=== PATIENT | male | born 1945 | race Caucasian/White ===

== ENCOUNTER 2016-04-11 13:22 | Emergency (ER) | payer MEDICARE, OTHER ==
[~2016-04-11] VITALS: Ht 177.8 cm; Wt 75.0 kg
[~2016-04-11 13:22] MED LIST: ACIPHEX20 MG PO; ALBUTEROL SULFAT3 M3 IH; ALBUTEROL0.83 MG/ML IH; ASPIR-LOW81 MG PO; ASPIRIN 32325 MG/TA1 PO; CLARITIN 1010 MG/TAB PO; CORDARONE200 MG/TAB PO; COUMADIN 22.5 MG/TAB PO; ELIQUIS 5MG PO; LIPITOR 40MG TA40 MG PO; LOTENSIN 1010 MG/TAB PO; LOTENSIN10 MG PO; NICODERM C21 MG/PATC TD; NITROSTAT0.4 MG SL; RT ADVAIR 228 DISKUS IH; RT SPIRIVA18 MCG IH; TOPROL XL 25MG25 MG PO; TOPROL XL25 MG PO; VENTOLIN0.09 MG IH; VIAGRA 25MG TAB25 MG PO; ZOCOR40 MG PO; ZYRTEC-D 5 MG-11 TER PO
[2016-04-11 13:23] VITALS: TEMP 97.3
[2016-04-11 13:50] LABS: BASO # 0.1 (0.0-0.2); BASO % 1.2 % (0.0-2.0); EOS # 0.6 (0.0-0.7); EOS % 7.2 % (0-4.0); GRAN # 4.4 (1.4-6.5); GRAN % 57.3 % (42.2-75.2); LYMPH # 1.9 (1.2-3.4); MEAN CELL VOLUME 99 fl (80.0-100.0); MEAN CORPUSCULAR HEMOGLOBIN 32 pg (27.0-31.0); MEAN CORPUSCULAR HGB CONC 33 g/dl (33.0-37.0); MEAN PLATELET VOLUME 11.1 fl (7.4-10.4); MONO # 0.7 (0.1-0.6); PLATELET COUNT 183 K/mm3 (130-400); RED BLOOD COUNT 4.67 M/mm3 (4.20-5.60); REDCELL DISTRIBUTION WIDTH-CV 12.7 % (11.5-14.5); WHITE BLOOD COUNT 7.7 K/mm3 (4.8-10.8)
[2016-04-11 14:02] LABS: ANION GAP 10 mmol/L (7-16); BLOOD UREA NITROGEN 18 mg/dL (9-20); CALCIUM 9.3 mg/dL (8.4-10.2); CARBON DIOXIDE 25 mmol/L (22-30); CHLORIDE 99 mmol/L (98-107); CREATININE, serum 1.05 mg/dL (0.66-1.25); GLUCOSE 108 mg/dL (74-106); POTASSIUM 4.5 mmol/L (3.4-5.0); SODIUM 135 mmol/L (137-145)
[2016-04-11 14:11] LABS: B-TYPE NATRIURETIC PEPTIDE 3800 pg/mL (0-125)
[2016-04-11 14:15] LABS: TROPONIN-I < 0.012 ng/mL (0.000-0.034)
[2016-04-11] MEDS ORDERED: LASIX 20MG TABL20 MG PO (14:55)
[2016-04-11] MEDS ORDERED: PREDNISONE20 MG PO (14:55)
[2016-04-11] MEDS ORDERED: LEVAQUIN 750MG750 M1 PO (14:56)
[2016-04-11 15:01] VITALS: BP 116/66; PULSE 76
== END 2016-04-11 15:18 | disposition home or self-care (01) ==
LOC: COL.ER 13:22
PROVIDERS: Emergency Medicine
DX: J44.0 Chronic obstructive pulmonary disease with (acute) lower respiratory infection (principal); J20.9 Acute bronchitis, unspecified; Z87.891 Personal history of nicotine dependence; I25.10 Atherosclerotic heart disease of native coronary artery without angina pectoris; Z86.711 Personal history of pulmonary embolism; Z79.01 Long term (current) use of anticoagulants; I11.0 Hypertensive heart disease with heart failure; I50.9 Heart failure, unspecified; Z95.810 Presence of automatic (implantable) cardiac defibrillator
CPT/HCPCS: J7512

== ENCOUNTER 2016-04-19 08:35 | Day surgery (SDC) | payer MEDICARE, OTHER ==
[~2016-04-19] VITALS: Ht 177.8 cm; Wt 79.5 kg
[~2016-04-19 08:35] MED LIST changes: +LASIX 20MG TABL20 MG PO; +LEVAQUIN 750MG750 M1 PO; +PREDNISONE20 MG PO
[2016-04-19 09:22] VITALS: BP 120/57; PULSE 77; TEMP 98
[2016-04-19 11:13] VITALS: BP 106/61; PULSE 81; TEMP 98.5
[2016-04-19 11:28] VITALS: BP 108/56; PULSE 72
[2016-04-19 11:43] VITALS: BP 126/71; PULSE 76
[2016-04-19 14:58] VITALS: BP 135/67; PULSE 80
== END 2016-04-19 11:58 | disposition home or self-care (01) ==
LOC: SDCO 08:35
DX: J40 Bronchitis, not specified as acute or chronic (principal); J38.7 Other diseases of larynx; J39.8 Other specified diseases of upper respiratory tract; R05 Cough; R06.02 Shortness of breath; R09.89 Other specified symptoms and signs involving the circulatory and respiratory systems; I25.2 Old myocardial infarction; I26.99 Other pulmonary embolism without acute cor pulmonale; I82.411 Acute embolism and thrombosis of right femoral vein; J44.9 Chronic obstructive pulmonary disease, unspecified; Z79.899 Other long term (current) drug therapy; Z79.82 Long term (current) use of aspirin; Z79.01 Long term (current) use of anticoagulants
CPT/HCPCS: J2704; J7120

== ENCOUNTER 2016-04-25 08:46 | Outpatient (CLI) | payer MEDICARE, OTHER ==
[2016-04-25] VITALS (8 sets, daily range): BP systolic 136–157; BP diastolic 74–86; PULSE 70–77; TEMP 100.5
[~2016-04-25] VITALS: Ht 177.8 cm; Wt 79.5 kg
[2016-04-25 11:08] LABS: HEMATOCRIT 39.5 % (42.0-52.0); HEMOGLOBIN 12.8 g/dl (13.5-18.0); MEAN CELL VOLUME 97 fl (80.0-100.0); MEAN CORPUSCULAR HEMOGLOBIN 31 pg (27.0-31.0); MEAN CORPUSCULAR HGB CONC 32 g/dl (33.0-37.0); PLATELET COUNT 207 K/mm3 (130-400); RED BLOOD COUNT 4.07 M/mm3 (4.20-5.60); REDCELL DISTRIBUTION WIDTH-CV 12.5 % (11.5-14.5)
[2016-04-25 11:20] LABS: CREATININE, serum 0.96 mg/dL (0.66-1.25)
== END 2016-04-25 15:30 | disposition home or self-care (01) ==
LOC: COL.VAS 08:46
PROVIDERS: Internal Medicine Pulmonary Disease
DX: I82.411 Acute embolism and thrombosis of right femoral vein (principal); Z45.2 Encounter for adjustment and management of vascular access device; R06.02 Shortness of breath; R94.39 Abnormal result of other cardiovascular function study; I08.0 Rheumatic disorders of both mitral and aortic valves
CPT/HCPCS: C1769; J2250; J3010; J7040; Q9967

== ENCOUNTER 2016-12-20 09:38 | Day surgery (SDC) | payer MEDICARE, OTHER ==
[~2016-12-20] VITALS: Ht 177.8 cm; Wt 80.0 kg
[2016-12-20] MEDS ORDERED: NICODERM C14 MG/PATC TD (10:32)
[2016-12-20 10:36] VITALS: BP 95/76; PULSE 63; TEMP 97
[2016-12-20 12:10] VITALS: BP 109/59; PULSE 69
[2016-12-20 12:25] VITALS: BP 119/69; PULSE 78
[2016-12-20 12:40] VITALS: BP 110/53; PULSE 75
[2016-12-20 12:55] VITALS: BP 131/71; PULSE 71
== END 2016-12-20 13:00 | disposition home or self-care (01) ==
LOC: SDCO 09:38
DX: Z12.11 Encounter for screening for malignant neoplasm of colon (principal); D12.3 Benign neoplasm of transverse colon; D12.5 Benign neoplasm of sigmoid colon; K57.30 Diverticulosis of large intestine without perforation or abscess without bleeding; K21.9 Gastro-esophageal reflux disease without esophagitis; K22.2 Esophageal obstruction; I25.10 Atherosclerotic heart disease of native coronary artery without angina pectoris; E78.5 Hyperlipidemia, unspecified; J44.9 Chronic obstructive pulmonary disease, unspecified; I25.2 Old myocardial infarction; I50.9 Heart failure, unspecified; F17.200 Nicotine dependence, unspecified, uncomplicated; Z95.828 Presence of other vascular implants and grafts; Z79.01 Long term (current) use of anticoagulants
CPT/HCPCS: C1726; J2250; J2405; J3010; J7030

== ENCOUNTER 2018-07-29 14:47 | Observation (INO) | payer MEDICARE, OTHER ==
[~2018-07-29] VITALS: Ht 177.8 cm; Wt 77.4 kg
[~2018-07-29 14:47] MED LIST changes: +LEVAQUIN 5500 MG/TA1 PO; +NICODERM C14 MG/PATC TD; +TAMIFLU 75MG75 MG PO
[2018-07-29 15:46] LABS: BASO # 0.1 (0.0-0.2); BASO % 1.4 % (0.0-2.0); EOS # 0.3 (0.0-0.7); EOS % 4.3 % (0-4.0); GRAN # 4.4 (1.4-6.5); GRAN % 55.1 % (42.2-75.2); HEMATOCRIT 43.1 % (42.0-52.0); HEMOGLOBIN 13.6 g/dl (13.5-18.0); LYMPH # 2.3 (1.2-3.4); LYMPH % 28.8 % (20.0-51.0); MEAN CELL VOLUME 94 fl (80.0-100.0); MEAN CORPUSCULAR HEMOGLOBIN 30 pg (27.0-31.0); MEAN CORPUSCULAR HGB CONC 32 g/dl (33.0-37.0); MEAN PLATELET VOLUME 10.6 fl (7.4-10.4); MONO # 0.8 (0.1-0.6); MONO % 10.1 % (1.7-9.3); PLATELET COUNT 245 K/mm3 (130-400); REDCELL DISTRIBUTION WIDTH-CV 13.6 % (11.5-14.5)
[2018-07-29 16:02] LABS: ALANINE AMINOTRANSFERASE < 6 U/L (21-72); ALKALINE PHOSPHATASE 166 U/L (50-136); ANION GAP 11 mmol/L (7-16); AST,SGOT 23 U/L (15-37); BILIRUBIN,TOTAL 1.1 mg/dL (0.0-1.0); BLOOD UREA NITROGEN 14 mg/dL (9-20); C-REACTIVE PROTEIN 3.7 mg/dL (0.0-0.9); CALCIUM 9.3 mg/dL (8.4-10.2); CARBON DIOXIDE 27 mmol/L (22-30); CHLORIDE 100 mmol/L (98-107); CREATININE, serum 0.93 (0.66-1.25); GLUCOSE 103 mg/dL (74-106); POTASSIUM 4.3 mmol/L (3.4-5.0); SODIUM 138 mmol/L (137-145); TOTAL PROTEIN 7.9 gm/dL (6.4-8.2)
[2018-07-29] MEDS ORDERED: PROTONIX20 MG PO (16:13)
[2018-07-29 16:16] LABS: TROPONIN-I < 0.012 ng/mL (0.000-0.035)
--- NOTE | 2018-07-29 18:00 | NUR ---
Received pt to the floor. Oriented pt to room. Pt denies shortness of breath at rest, on 2l NC. Med rec done. Dr. Miranda in room with pt.
--- NOTE | 2018-07-29 18:56 | NUR ---
Hand off report given to Florencia BROWN. Pt lying in bed, breathing even and unlabored. Denies any needs at this time.
[2018-07-29 19:26] VITALS: BP 142/75; PULSE 102
--- NOTE | 2018-07-29 19:30 | NUR ---
Admitted to the medical floor from ER- VSS, sitting at edge of bed eating supper--denies SOB at this time, o2 is off while pt is eating, sats 92% on room air, Up in room on own- steady on feet
[2018-07-29 20:00] VITALS: BP 142/75; PULSE 102; TEMP 99.5
[2018-07-29 23:18] VITALS: BP 121/62; PULSE 99; TEMP 98.8
[2018-07-30 04:33] VITALS: BP 124/60; PULSE 81
--- NOTE | 2018-07-30 04:34 | NUR ---
Quiet night-- states he is feeling so much better this morning,,VSS, o2 sats 95% on 2L/nc. Denies pain.
[2018-07-30 07:53] VITALS: BP 110/89; PULSE 84; TEMP 97.8
--- NOTE | 2018-07-30 08:47 | NUR ---
Pt is awake and A/Ox4, sitting up in bed watching TV. He denies any pain or discomfort. Pt remains on room air, resp. are even and unlabored. Lungs remains coarse. Pt is up as tolerated in room. Pt denies any other needs, will monitor.
[2018-07-30] MEDS ORDERED: ZITHROMAX500 M2 PO (09:35)
[2018-07-30] MEDS ORDERED: PREDNISONE20 MG PO (09:36)
--- NOTE | 2018-07-30 09:43 | NUR ---
SW met with the patient to discuss discharge plan. The patient lives in [place] with his , Armida. He reports independence with ADLs and has crutches, a walker, showerchair, toliet riser, and nocturnal oxygen through [facility]. The patient's PCP is Dr. Carmen Chandler and he receives his medications at [facility]. He reports no difficulties obtaining her meds. The patient does not have advanced directives and he was not interested in completing them at this time. The patient plans to return home with his upon discharge. An exercise oximetry has been ordered. SW to continue to follow.
--- NOTE | 2018-07-30 09:57 | NUR ---
EXERCISE OXIMETRY: RESTING SPO2 ON RA IS 94% PATIENT'S SPO2 WHILE WALKING 1000 FEET WAS IN BETWEEN 89-92% POST EXCERISE: PATIENT LAID BACK IN BED AND SPO2 WENT BACK UP TO 94% NO OXYGEN REQUIRED AT REST OR WITH EXERCISE. RN MADE AWARE AND WAS ASKED TO KEEP PATIENT OFF OF OXYGEN FOR THE DAY. PATIENT STATED THAT HE WAS TOLD BEFORE THAT HE NEEDED 2L OF OXYGEN AT NIGHT WHILE SLEEPING.
[2018-07-30] MEDS ORDERED: IPRATROPIUM BROM3 M1 IH (10:56)
--- NOTE | 2018-07-30 11:28 | NUR ---
The patient did not qualify for continuous oxygen. The patient informed the hospitalist that he will be traveling with this to his grandson's graduation. The hospitalist recommended using a portable tank for the trip. The patient reports that he does not have a portable tank. AURELIA then contacted his DME company, [employer]. [employer] reports that the patient can rent portable tanks for $7.50 a day and that they would take a copy of his credit card, in case anything were to happen to the tanks. AURELIA informed the patient and the patient's reports that he does not want to do this. He reports that he does not need to use the oxygen during the day, but that he does need a new nebulizer. AURELIA informed the patient's PA. The patient's PA wrote a script for the nebulizer. AURELIA presented the patient with a patient choice form for DME. The patient chose [employer]. Patient choice form signed by the patient and he was provided a copy. AURELIA contacted and faxed the patient's nebulizer script to [facility] [employer]. The patient plans to cigar packer and picker the nebulizer at [facility]. No additional needs at this time.
--- NOTE | 2018-07-30 12:27 | NUR ---
Pt was discharged home from hospital. All discharge instructions and paperwork was reviewed with pt who expressed understanding and had no questions. All medications sent electronically to pharm. Medications reviewed. Saline lock removed, catheter tip intact. Pt was escorted out of facility by staff.
== END 2018-07-30 12:31 | disposition home or self-care (01) ==
LOC: COL.ER 14:47 → MEDICAL 17:06
PROVIDERS: Emergency Medicine; ADMIT Hospitalist
DX: J44.1 Chronic obstructive pulmonary disease with (acute) exacerbation (principal); J96.21 Acute and chronic respiratory failure with hypoxia; I11.0 Hypertensive heart disease with heart failure; I50.20 Unspecified systolic (congestive) heart failure; E78.5 Hyperlipidemia, unspecified; K21.9 Gastro-esophageal reflux disease without esophagitis; Z86.711 Personal history of pulmonary embolism; Z79.01 Long term (current) use of anticoagulants; Z95.810 Presence of automatic (implantable) cardiac defibrillator; Z79.82 Long term (current) use of aspirin; Z79.899 Other long term (current) drug therapy; F17.210 Nicotine dependence, cigarettes, uncomplicated
CPT/HCPCS: G0378; J2920; J7030; J7512

== ENCOUNTER 2018-12-02 09:03 | Emergency (ER) | payer MEDICARE, OTHER ==
[~2018-12-02] VITALS: Ht 177.8 cm; Wt 74.1 kg
[~2018-12-02 09:03] MED LIST changes: +ASPIRIN E.C. 8181 MG PO; +IPRATROPIUM BROM3 M1 IH; +MEXITIL 150MG150 MG PO; +PROTONIX20 MG PO; +ZEBETA 5MG5 MG PO; +ZITHROMAX500 M2 PO
[2018-12-02 09:47] LABS: ALANINE AMINOTRANSFERASE < 6 U/L (21-72); ALBUMIN 3.8 gm/dL (3.5-5.0); ALKALINE PHOSPHATASE 143 U/L (50-136); ANION GAP 10 mmol/L (7-16); AST,SGOT 18 U/L (15-37); BLOOD UREA NITROGEN 8 mg/dL (9-20); CALCIUM 8.9 mg/dL (8.4-10.2); CARBON DIOXIDE 27 mmol/L (22-30); CHLORIDE 101 mmol/L (98-107); CREATININE, serum 0.68 (0.66-1.25); GLUCOSE 100 mg/dL (74-106); POTASSIUM 4.1 mmol/L (3.4-5.0); SODIUM 137 mmol/L (137-145); TOTAL PROTEIN 7.3 gm/dL (6.4-8.2)
[2018-12-02 10:00] LABS: TROPONIN-I < 0.012 ng/mL (0.000-0.035)
[2018-12-02 10:28] LABS: HEMATOCRIT 38.3 % (42.0-52.0); HEMOGLOBIN 11.8 g/dl (13.5-18.0); MEAN CELL VOLUME 92 fl (80.0-100.0); MEAN CORPUSCULAR HEMOGLOBIN 28 pg (27.0-31.0); RED BLOOD COUNT 4.16 M/mm3 (4.20-5.60)
[2018-12-02 10:29] LABS: BASO # 0.1 (0.0-0.2); BASO % 1.2 % (0.0-2.0); EOS # 0.4 (0.0-0.7); EOS % 4.8 % (0-4.0); GRAN % 66.4 % (42.2-75.2); LYMPH # 1.4 (1.2-3.4); LYMPH % 18.4 % (20.0-51.0); MEAN CORPUSCULAR HGB CONC 31 g/dl (33.0-37.0); MEAN PLATELET VOLUME 10.5 fl (7.4-10.4); MONO # 0.7 (0.1-0.6); MONO % 9.1 % (1.7-9.3); PLATELET COUNT 342 K/mm3 (130-400); REDCELL DISTRIBUTION WIDTH-CV 14.1 % (11.5-14.5)
[2018-12-02] MEDS ORDERED: PREDNISONE20 MG PO (10:37)
[2018-12-02] MEDS ORDERED: DOXYCYCLINE 10100 MG PO (10:37)
[2018-12-02] MEDS ORDERED: IPRATROPIUM BROM3 M1 IH (10:38)
[2018-12-02 12:30] VITALS: BP 130/69; PULSE 107; TEMP 98.3
== END 2018-12-02 12:30 | disposition home or self-care (01) ==
LOC: COL.ER 09:03
PROVIDERS: Emergency Medicine
DX: J44.1 Chronic obstructive pulmonary disease with (acute) exacerbation (principal); I11.0 Hypertensive heart disease with heart failure; I25.10 Atherosclerotic heart disease of native coronary artery without angina pectoris; I50.9 Heart failure, unspecified; F17.210 Nicotine dependence, cigarettes, uncomplicated; Z95.5 Presence of coronary angioplasty implant and graft; Z79.82 Long term (current) use of aspirin; Z79.52 Long term (current) use of systemic steroids; Z79.51 Long term (current) use of inhaled steroids; Z79.01 Long term (current) use of anticoagulants
CPT/HCPCS: A4216; J0696; J2930; J3475

== ENCOUNTER 2019-04-15 08:47 | Inpatient (IN) | payer MEDICARE, OTHER ==
[~2019-04-15] VITALS: Ht 177.8 cm; Wt 76.8 kg
[2019-04-15] VITALS (371 sets, daily range): BP systolic 93–141; BP diastolic 49–82; PULSE 74–111; TEMP 97.7–98.1; O2SAT 91–99
[~2019-04-15 08:47] MED LIST changes: +DOXYCYCLINE 10100 MG PO; +ENTRESTO 49 MG1 EACH PO; +MEDROL 4MG DOSPA4 MG PO; +MUCINEX 60600 MG/TA1 PO; +OMNICEF 300MG300 MG PO; +TRELEGY ELLIPT1 EACH IH
[2019-04-15 09:52] LABS: BASO # 0.1 (0.0-0.2); BASO % 2.2 % (0.0-2.0); EOS # 0.3 (0.0-0.7); EOS % 5.9 % (0-4.0); GRAN # 3.2 (1.4-6.5); GRAN % 57.5 % (42.2-75.2); HEMOGLOBIN 10.6 g/dl (13.5-18.0); LYMPH # 1.3 (1.2-3.4); LYMPH % 24.5 % (20.0-51.0); MEAN CELL VOLUME 87 fl (80.0-100.0); MEAN CORPUSCULAR HEMOGLOBIN 27 pg (27.0-31.0); MEAN CORPUSCULAR HGB CONC 31 g/dl (33.0-37.0); MEAN PLATELET VOLUME 10.4 fl (7.4-10.4); MONO # 0.5 (0.1-0.6); MONO % 9.5 % (1.7-9.3); PLATELET COUNT 214 K/mm3 (130-400); RED BLOOD COUNT 3.92 M/mm3 (4.20-5.60); REDCELL DISTRIBUTION WIDTH-CV 15.1 % (11.5-14.5)
[2019-04-15 09:56] LABS: HEMATOCRIT 34.2 % (42.0-52.0)
[2019-04-15 09:57] LABS: ALBUMIN 3.6 gm/dL (3.5-5.0); BILIRUBIN,TOTAL 0.8 mg/dL (0.0-1.0); CALCIUM 8.7 mg/dL (8.4-10.2); CREATININE, serum 0.78 (0.66-1.25); INR 1.3 (0.8-3.0); POTASSIUM 4.4 mmol/L (3.4-5.0); PROTHROMBIN TIME 15.7 SECONDS (9.7-12.8); TOTAL PROTEIN 6.7 gm/dL (6.4-8.2)
[2019-04-15 10:08] LABS: TROPONIN-I 0.014 ng/mL (0.000-0.035)
--- NOTE | 2019-04-15 14:28 | NUR ---
SEE MERGE FOR MEDICATION ADMINISTRATION AND INTRA/POST PROCEDURE DOCUMENTATION AND ASSESSMENTS. PLAN FOR RIGHT GROIN, BOTH RIGHT AND LEFT GROIN PREPPED.
--- NOTE | 2019-04-15 15:05 | NUR ---
Patient arrives to ICU 16 with labor training manager staff. Attached to monitors. Assessment and vitals as charted. Right groin site CDI and free of hematoma. Distal pulses +1 and equal.
[2019-04-15] MEDS ORDERED: MEXITIL 150MG150 MG PO (15:35)
[2019-04-16] VITALS (415 sets, daily range): BP systolic 105–126; BP diastolic 47–75; PULSE 49–112; TEMP 97.6–98.6; O2SAT 89–97
[2019-04-16 07:03] LABS: BASO # 0.1 (0.0-0.2); BASO % 1.5 % (0.0-2.0); EOS # 0.3 (0.0-0.7); EOS % 4.8 % (0-4.0); GRAN # 2.8 (1.4-6.5); GRAN % 51.3 % (42.2-75.2); HEMOGLOBIN 10.8 g/dl (13.5-18.0); LYMPH # 1.7 (1.2-3.4); LYMPH % 31.3 % (20.0-51.0); MEAN CELL VOLUME 90 fl (80.0-100.0); MEAN CORPUSCULAR HEMOGLOBIN 27 pg (27.0-31.0); MEAN CORPUSCULAR HGB CONC 30 g/dl (33.0-37.0); MEAN PLATELET VOLUME 10.4 fl (7.4-10.4); MONO # 0.6 (0.1-0.6); MONO % 10.7 % (1.7-9.3); PLATELET COUNT 211 K/mm3 (130-400); REDCELL DISTRIBUTION WIDTH-CV 15.5 % (11.5-14.5)
[2019-04-16 07:05] LABS: HEMATOCRIT 35.9 % (42.0-52.0)
--- NOTE | 2019-04-16 07:05 | NUR ---
Bedside report given to STEPHANIE Corley.
[2019-04-16 07:07] LABS: CALCIUM 8.7 mg/dL (8.4-10.2); CREATININE, serum 0.86 (0.66-1.25); MAGNESIUM 1.9 mg/dL (1.6-2.3); POTASSIUM 4.3 mmol/L (3.4-5.0)
--- NOTE | 2019-04-16 13:36 | NUR ---
Attempted to call report - staff unavailable at this time
--- NOTE | 2019-04-16 14:35 | NUR ---
Pt transported to [place] [id number] at this time - recieved by STEPHANIE Fine - pt tolerated transfer well
--- NOTE | 2019-04-16 15:26 | NUR ---
Touring Production Manager met with patient and patient's Armida (ph#[phone]) to discuss discharge planning. Patient lives in [place] with his . Patient sees Dr. Chandler for primary care and obtains medications from [facility]. Patient uses oxygen at night which is provided by [facility]. Patient reports independence with ADLS. Patient does not have Advance Directives completed at this time. Patient to move to medical floor. SW will follow as needed.
--- NOTE | 2019-04-16 18:55 | NUR ---
Report with STEPHANIE Lee. Pt sitting up on side of bed eating dinner, denies pain or needs at this time. Call light in reach.
--- NOTE | 2019-04-16 20:00 | NUR ---
Received report from STEPHANIE Fine. Assessment complete. Alert and oriented. Denies any pain or any discomfort at this time. Meds adminsitered as ordered. INT to RFA intact, flushed, dressing CDI. Tele monitor in place, leads checked. Needs attended too. Call light within reach.
[2019-04-17 04:00] VITALS: BP 119/71; PULSE 102; TEMP 98.2
--- NOTE | 2019-04-17 05:52 | NUR ---
Pt uneventful during this shift. Made no complaints. Meds given. Call light within reach. On 2LO2 HS. On RA now.
--- NOTE | 2019-04-17 07:14 | NUR ---
Report given to STEPHANIE Burciaga.
[2019-04-17 07:35] LABS: HEMOGLOBIN 10.2 g/dl (13.5-18.0); MEAN CELL VOLUME 89 fl (80.0-100.0); MEAN CORPUSCULAR HEMOGLOBIN 27 pg (27.0-31.0); MEAN CORPUSCULAR HGB CONC 30 g/dl (33.0-37.0); MEAN PLATELET VOLUME 10.2 fl (7.4-10.4); PLATELET COUNT 200 K/mm3 (130-400); RED BLOOD COUNT 3.81 M/mm3 (4.20-5.60); REDCELL DISTRIBUTION WIDTH-CV 15.5 % (11.5-14.5)
[2019-04-17 07:44] LABS: HEMATOCRIT 33.8 % (42.0-52.0)
[2019-04-17 07:47] LABS: CALCIUM 8.8 mg/dL (8.4-10.2); CREATININE, serum 0.83 (0.66-1.25); MAGNESIUM 1.8 mg/dL (1.6-2.3); POTASSIUM 4.1 mmol/L (3.4-5.0)
[2019-04-17 09:12] VITALS: BP 103/57; PULSE 73; TEMP 97.6
--- NOTE | 2019-04-17 09:52 | NUR ---
Pt awaken and alert upon entry, no C/O of pain at this time, R groin site CDI open to air, shift assessment complete, left Pt call light in reach, bed in lowest position.
[2019-04-17 12:08] VITALS: BP 132/70; PULSE 72; TEMP 98.7
[2019-04-17] MEDS ORDERED: BETAPACE 120MG120 MG PO (14:39)
--- NOTE | 2019-04-17 17:01 | NUR ---
Pt discharged to home, IV discontinued, tip intact, discussed discharge packet, answered all questions, escorted to entrance, Pt left with spouse via private transportation.
== END 2019-04-17 17:00 | disposition home or self-care (01) | DRG 287 ==
LOC: COL.ER 08:47 → MEDICAL 10:32 → IMCU 10:32 → MEDICAL 04-16 14:33
PROVIDERS: Emergency Medicine; Nurse Practitioner; Physician Assistant; ADMIT Hospitalist
PROC: 4A023N7 Measurement of Cardiac Sampling and Pressure, Left Heart, Percutaneous Approach (ICD-10-PCS; principal; 2019-04-15)
PROC: B2111ZZ Fluoroscopy of Multiple Coronary Arteries using Low Osmolar Contrast (ICD-10-PCS; 2019-04-15)
DX: I49.01 Ventricular fibrillation (principal); I50.22 Chronic systolic (congestive) heart failure; I25.5 Ischemic cardiomyopathy; I25.10 Atherosclerotic heart disease of native coronary artery without angina pectoris; J44.9 Chronic obstructive pulmonary disease, unspecified; I11.0 Hypertensive heart disease with heart failure; Z95.810 Presence of automatic (implantable) cardiac defibrillator; Z86.718 Personal history of other venous thrombosis and embolism; Z79.01 Long term (current) use of anticoagulants; K21.9 Gastro-esophageal reflux disease without esophagitis; E78.5 Hyperlipidemia, unspecified; Z95.5 Presence of coronary angioplasty implant and graft; F17.210 Nicotine dependence, cigarettes, uncomplicated; Z88.8 Allergy status to other drugs, medicaments and biological substances; D64.9 Anemia, unspecified
CPT/HCPCS: 99223-AI; 99232-AI; 99239; C1760; C1894; J1644; J2250; J3010; Q9967

== ENCOUNTER → 2019-12-24 | Outpatient (CLI) | payer MEDICARE, OTHER ==
[~2019-12-24] MED LIST changes: +BETAPACE 120MG120 MG PO
== END ==
LOC: ZCOL.LAB 15:33
DX: H60.92 Unspecified otitis externa, left ear (principal)

== ENCOUNTER 2020-01-09 16:32 | Emergency (ER) | payer MEDICARE, OTHER ==
[~2020-01-09] VITALS: Ht 177.8 cm; Wt 72.5 kg
[2020-01-09 16:37] VITALS: TEMP 96.8
[2020-01-09 17:08] LABS: BASO # 0.1 (0.0-0.2); BASO % 1.8 % (0.0-2.0); EOS # 0.3 (0.0-0.7); EOS % 4.3 % (0-4.0); GRAN # 3.5 (1.4-6.5); HEMATOCRIT 45.4 % (42.0-52.0); HEMOGLOBIN 14.6 g/dl (13.5-18.0); INR 1.5 (0.8-3.0); LYMPH # 3.2 (1.2-3.4); LYMPH % 40.8 % (20.0-51.0); MEAN CELL VOLUME 91 fl (80.0-100.0); MEAN CORPUSCULAR HEMOGLOBIN 29 pg (27.0-31.0); MEAN CORPUSCULAR HGB CONC 32 g/dl (33.0-37.0); MONO # 0.6 (0.1-0.6); MONO % 7.8 % (1.7-9.3); PLATELET COUNT 335 K/mm3 (130-400); PROTHROMBIN TIME 16.9 SECONDS (9.7-12.8); RED BLOOD COUNT 4.99 M/mm3 (4.20-5.60)
[2020-01-09 17:10] LABS: ALBUMIN 4.1 gm/dL (3.5-5.0); BILIRUBIN,TOTAL 0.8 mg/dL (0.0-1.0); CALCIUM 9.2 mg/dL (8.4-10.2); CREATININE, serum 0.7 (0.66-1.25); POTASSIUM 3.9 mmol/L (3.4-5.0); TOTAL PROTEIN 7.6 gm/dL (6.4-8.2)
[2020-01-09 17:11] LABS: PARTIAL THROMBOPLASTIN TIME 37.1 SECONDS (26.0-37.0)
[2020-01-09] MEDS ORDERED: MEXITIL 150MG150 MG PO (17:11)
[2020-01-09 17:21] LABS: TROPONIN-I 0.027 ng/mL (0.000-0.035)
[2020-01-09] MEDS ORDERED: DALIRESP500 MCG PO (17:41)
[2020-01-09] MEDS ORDERED: PROAIR HFA0.09 MG/AC IH (17:42)
[2020-01-09] MEDS ORDERED: ACIPHEX20 MG PO (17:42)
[2020-01-09] MEDS ORDERED: LIPITOR 80MG80 MG PO (17:42)
[2020-01-09] MEDS ORDERED: LASIX 40MG TABL40 MG PO (17:43)
[2020-01-09] MEDS ORDERED: TRELEGY ELLIPT1 EACH IH (17:43)
[2020-01-09] MEDS ORDERED: BETAPACE AF80 MG/TA1 (17:44)
[2020-01-09] MEDS ORDERED: ELIQUIS 5MG PO (17:44)
[2020-01-09] MEDS ORDERED: ASPIRIN 81M81 MG/TA2 PO (17:45)
[2020-01-09] MEDS ORDERED: ENTRESTO 24 MG1 EACH PO (17:45)
[2020-01-09] MEDS ORDERED: NATURAL IRON65 MG (17:46)
[2020-01-09 18:02] LABS: MAGNESIUM 1.9 mg/dL (1.6-2.3); PHOSPHOROUS 3.7 mg/dL (2.5-4.5)
[2020-01-09 19:06] VITALS: BP 144/81; PULSE 76
== END 2020-01-09 19:12 | disposition short-term general hospital (02) ==
LOC: COL.ER 16:32
PROVIDERS: Emergency Medicine
DX: T82.198A Other mechanical complication of other cardiac electronic device, initial encounter (principal); I47.2 Ventricular tachycardia; R07.9 Chest pain, unspecified; I25.10 Atherosclerotic heart disease of native coronary artery without angina pectoris; I10 Essential (primary) hypertension; J44.9 Chronic obstructive pulmonary disease, unspecified; I25.2 Old myocardial infarction; F17.210 Nicotine dependence, cigarettes, uncomplicated; Z79.01 Long term (current) use of anticoagulants; Z79.82 Long term (current) use of aspirin; Z86.718 Personal history of other venous thrombosis and embolism; Z95.0 Presence of cardiac pacemaker; Z86.711 Personal history of pulmonary embolism; Z95.9 Presence of cardiac and vascular implant and graft, unspecified; Z88.8 Allergy status to other drugs, medicaments and biological substances

== ENCOUNTER → 2020-07-13 | Outpatient (CLI) | payer MEDICARE, OTHER ==
[~2020-07-13] MED LIST changes: +ASPIRIN 81M81 MG/TA2 PO; +BETAPACE AF80 MG/TA1 PO; +CEPHALEXIN500 M1 PO; +DALIRESP500 MCG PO; +DOXYCYCLINE HY100 MG PO; +ENTRESTO 24 MG1 EACH PO; +IMDUR 30MG30 MG/TAB PO; +LASIX 40MG TABL40 MG PO; +LIPITOR 80MG80 MG PO; +NATURAL IRON65 MG; +PREDNISONE10 MG PO; +PREDNISONE50 MG PO; +PROAIR HFA0.09 MG/AC IH; +VITAMIN D31000 IU PO; +XOPENEX 1.1.25 MG/3 IH
== END ==
LOC: COL.RAD 10:42
DX: R10.31 Right lower quadrant pain (principal)
CPT/HCPCS: Q9967

== ENCOUNTER 2020-07-14 09:04 | Day surgery (SDC) | payer MEDICARE, OTHER ==
[~2020-07-14] VITALS: Ht 177.8 cm; Wt 82.5 kg
[~2020-07-14 09:04] MED LIST changes: -CEPHALEXIN500 M1 PO; -DOXYCYCLINE HY100 MG PO; -IMDUR 30MG30 MG/TAB PO; -PREDNISONE10 MG PO; -PREDNISONE50 MG PO; -VITAMIN D31000 IU PO; -XOPENEX 1.1.25 MG/3 IH
[2020-07-14] MEDS ORDERED: TOPROL XL 25MG25 MG PO (09:50)
[2020-07-14] MEDS ORDERED: XOPENEX 1.1.25 MG/3 IH (09:51)
[2020-07-14] MEDS ORDERED: MUCINEX 60600 MG/TA1 PO (09:51)
[2020-07-14] MEDS ORDERED: VITAMIN D31000 IU PO (09:52)
[2020-07-14 10:28] VITALS: BP 125/57; PULSE 73; TEMP 97.5
[2020-07-14 11:20] VITALS: BP 90/55; PULSE 81; TEMP 97.7
--- NOTE | 2020-07-14 11:20 | NUR ---
PT TO BAY 3 VIA CART FROM ENDO ROOM, PT WALKED TO CHAIR WITH ASSIST, IN ROOM, STATES FEELS "A LITTLE LIGHT HEADED" RECLINER BACK, CALL LIGHT IN REACH, TAKES SNACK
[2020-07-14 11:35] VITALS: BP 106/42; PULSE 80
[2020-07-14 11:50] VITALS: BP 103/45; PULSE 79
--- NOTE | 2020-07-14 11:50 | NUR ---
IN ROOM TO TALK TO PT AND , IV DC'D INTACT. REVIEWED DISCHARGE INST. WITH PT ON MODERATE SEDATION PRECAUTIONS, FOLLOWUP, ACTIVITY TODAY WITH VERBAL UNDERSTANDING.
[2020-07-14 12:05] VITALS: BP 109/51; PULSE 81
--- NOTE | 2020-07-14 12:05 | NUR ---
PT UP AND DRESSED WITH STANDBY ASSIST, TOLERATED WELL, DISCHARGED VIA W/C TO CAR WITH AND STAFF
== END 2020-07-14 12:05 | disposition home or self-care (01) ==
LOC: SDCO 09:04
DX: K22.2 Esophageal obstruction (principal); R13.10 Dysphagia, unspecified; K44.9 Diaphragmatic hernia without obstruction or gangrene; Z86.010 Personal history of colon polyps; I11.0 Hypertensive heart disease with heart failure; I50.9 Heart failure, unspecified; I25.10 Atherosclerotic heart disease of native coronary artery without angina pectoris; Z86.718 Personal history of other venous thrombosis and embolism; K21.9 Gastro-esophageal reflux disease without esophagitis; E78.5 Hyperlipidemia, unspecified; Z79.01 Long term (current) use of anticoagulants; I25.2 Old myocardial infarction; M19.90 Unspecified osteoarthritis, unspecified site; Z86.711 Personal history of pulmonary embolism; J30.2 Other seasonal allergic rhinitis; Z88.2 Allergy status to sulfonamides; Z88.8 Allergy status to other drugs, medicaments and biological substances; J44.9 Chronic obstructive pulmonary disease, unspecified; Z99.81 Dependence on supplemental oxygen; Z87.891 Personal history of nicotine dependence
CPT/HCPCS: C1726; J2704; J7030

== ENCOUNTER 2020-08-07 13:20 | Emergency (ER) | payer MEDICARE, OTHER ==
[~2020-08-07] VITALS: Ht 177.8 cm; Wt 80.5 kg
[~2020-08-07 13:20] MED LIST changes: +VITAMIN D31000 IU PO; +XOPENEX 1.1.25 MG/3 IH
[2020-08-07 14:28] LABS: INR 1.5 (0.8-3.0); PROTHROMBIN TIME 16.7 SECONDS (9.7-12.8)
[2020-08-07 14:31] LABS: PARTIAL THROMBOPLASTIN TIME 31.7 SECONDS (26.0-37.0)
[2020-08-07 14:32] LABS: ALANINE AMINOTRANSFERASE 15 U/L (4-49); ALBUMIN 3.7 gm/dL (3.5-5.0); ALKALINE PHOSPHATASE 92 U/L (50-136); ANION GAP 7 mmol/L (7-16); AST,SGOT 23 U/L (15-37); BILIRUBIN,TOTAL 1.2 mg/dL (0.0-1.0); BLOOD UREA NITROGEN 14 mg/dL (9-20); CALCIUM 8.6 mg/dL (8.4-10.2); CARBON DIOXIDE 25 mmol/L (22-30); CHLORIDE 106 mmol/L (98-107); CREATININE, serum 0.76 (0.66-1.25); GLUCOSE 135 mg/dL (74-106); POTASSIUM 3.9 mmol/L (3.4-5.0); SODIUM 138 mmol/L (137-145); TOTAL PROTEIN 6.7 gm/dL (6.4-8.2)
[2020-08-07 14:46] LABS: TROPONIN-I < 0.012 ng/mL (0.000-0.035)
[2020-08-07 15:25] LABS: BASO # 0.2 (0.0-0.2); BASO % 1.7 % (0.0-2.0); EOS # 0.4 (0.0-0.7); EOS % 4.5 % (0-4.0); GRAN # 4.4 (1.4-6.5); GRAN % 51.5 % (42.2-75.2); HEMATOCRIT 45.8 % (42.0-52.0); HEMOGLOBIN 14.7 g/dl (13.5-18.0); LYMPH # 2.9 (1.2-3.4); LYMPH % 33.3 % (20.0-51.0); MEAN CELL VOLUME 98 fl (80.0-100.0); MEAN CORPUSCULAR HEMOGLOBIN 31 pg (27.0-31.0); MEAN CORPUSCULAR HGB CONC 32 g/dl (33.0-37.0); MEAN PLATELET VOLUME 11.8 fl (7.4-10.4); MONO # 0.8 (0.1-0.6); MONO % 8.8 % (1.7-9.3); PLATELET COUNT 208 K/mm3 (130-400); RED BLOOD COUNT 4.69 M/mm3 (4.20-5.60); REDCELL DISTRIBUTION WIDTH-CV 12.8 % (11.5-14.5)
[2020-08-07] MEDS ORDERED: PREDNISONE20 MG PO (17:51)
[2020-08-07] MEDS ORDERED: DOXYCYCLINE 10100 MG PO (17:51)
[2020-08-07 18:17] VITALS: BP 163/91; PULSE 75; TEMP 98
== END 2020-08-07 18:27 | disposition home or self-care (01) ==
LOC: COL.ER 13:20
PROVIDERS: Family Medicine
DX: J44.1 Chronic obstructive pulmonary disease with (acute) exacerbation (principal); R07.89 Other chest pain; I25.10 Atherosclerotic heart disease of native coronary artery without angina pectoris; I25.2 Old myocardial infarction; I50.9 Heart failure, unspecified; Z95.0 Presence of cardiac pacemaker; Z88.2 Allergy status to sulfonamides; Z88.8 Allergy status to other drugs, medicaments and biological substances; Z87.891 Personal history of nicotine dependence; Z79.01 Long term (current) use of anticoagulants; Z79.82 Long term (current) use of aspirin
CPT/HCPCS: J2930

== ENCOUNTER 2020-08-21 13:13 | Emergency (ER) | payer MEDICARE, OTHER ==
[~2020-08-21] VITALS: Ht 177.8 cm; Wt 80.9 kg
[2020-08-21 13:19] VITALS: TEMP 97.7
[2020-08-21 13:51] LABS: BASO # 0.1 (0.0-0.2); BASO % 1.1 % (0.0-2.0); EOS # 0.4 (0.0-0.7); EOS % 3.8 % (0-4.0); GRAN # 7.3 (1.4-6.5); GRAN % 68.3 % (42.2-75.2); HEMATOCRIT 40.4 % (42.0-52.0); HEMOGLOBIN 13.1 g/dl (13.5-18.0); LYMPH # 1.9 (1.2-3.4); LYMPH % 18.2 % (20.0-51.0); MEAN CELL VOLUME 96 fl (80.0-100.0); MEAN CORPUSCULAR HEMOGLOBIN 31 pg (27.0-31.0); MEAN CORPUSCULAR HGB CONC 32 g/dl (33.0-37.0); MEAN PLATELET VOLUME 10.5 fl (7.4-10.4); MONO # 0.9 (0.1-0.6); MONO % 8.3 % (1.7-9.3); PLATELET COUNT 180 K/mm3 (130-400); RED BLOOD COUNT 4.22 M/mm3 (4.20-5.60); REDCELL DISTRIBUTION WIDTH-CV 12.9 % (11.5-14.5)
[2020-08-21 14:05] LABS: ALANINE AMINOTRANSFERASE 15 U/L (4-49); ALBUMIN 3.6 gm/dL (3.5-5.0); ALKALINE PHOSPHATASE 97 U/L (50-136); ANION GAP 7 mmol/L (7-16); AST,SGOT 21 U/L (15-37); BILIRUBIN,TOTAL 1.5 mg/dL (0.0-1.0); BLOOD UREA NITROGEN 11 mg/dL (9-20); C-REACTIVE PROTEIN 5.6 mg/dL (0.0-0.9); CALCIUM 8.5 mg/dL (8.4-10.2); CARBON DIOXIDE 23 mmol/L (22-30); CHLORIDE 106 mmol/L (98-107); CREATININE, serum 0.74 (0.66-1.25); GLUCOSE 110 mg/dL (74-106); POTASSIUM 3.7 mmol/L (3.4-5.0); SODIUM 136 mmol/L (137-145); TOTAL PROTEIN 6.9 gm/dL (6.4-8.2)
[2020-08-21 14:11] LABS: COLLECTION METHOD CLEAN CATCH
[2020-08-21 14:20] LABS: PH 6 (5-8); SQUAMOUS EPITHELIAL None Seen /hpf; URINE APPEARANCE Clear; URINE BACTERIA None Seen /hpf; URINE BILIRUBIN Negative (NEGATIVE); URINE BLOOD Negative (NEGATIVE); URINE COLOR Yellow; URINE GLUCOSE Negative (NEGATIVE); URINE KETONE Negative (NEGATIVE); URINE LEUKOCYTE ESTERASE Negative (NEGATIVE); URINE NITRATE Negative (NEGATIVE); URINE PROTEIN(semi-quant) Negative (NEGATIVE); URINE RBC 0-2 /hpf; URINE UROBILINOGEN Negative (NEGATIVE)
[2020-08-21 14:32] LABS: TROPONIN-I < 0.012 ng/mL (0.000-0.035)
[2020-08-21] MEDS ORDERED: OMNICEF 300MG300 MG PO (16:53)
[2020-08-21] MEDS ORDERED: PREDNISONE10 MG PO (16:53)
[2020-08-21 17:02] VITALS: BP 129/72; PULSE 77
== END 2020-08-21 17:07 | disposition home or self-care (01) ==
LOC: COL.ER 13:13
PROVIDERS: Family Medicine
DX: J20.9 Acute bronchitis, unspecified (principal); J44.1 Chronic obstructive pulmonary disease with (acute) exacerbation; Z87.891 Personal history of nicotine dependence; Z79.52 Long term (current) use of systemic steroids; Z79.01 Long term (current) use of anticoagulants
CPT/HCPCS: J0696; J1940; J2930; J7120

== ENCOUNTER 2020-09-20 13:08 | Emergency (ER) | payer MEDICARE, OTHER ==
[~2020-09-20] VITALS: Ht 177.8 cm; Wt 80.0 kg
[~2020-09-20 13:08] MED LIST changes: +PREDNISONE10 MG PO
[2020-09-20 13:14] VITALS: TEMP 97.5
[2020-09-20 13:43] LABS: BASO # 0.1 (0.0-0.2); BASO % 1.7 % (0.0-2.0); EOS # 0.5 (0.0-0.7); EOS % 6.7 % (0-4.0); GRAN # 2.8 (1.4-6.5); GRAN % 39.5 % (42.2-75.2); HEMATOCRIT 43.8 % (42.0-52.0); HEMOGLOBIN 14.4 g/dl (13.5-18.0); LYMPH # 3.2 (1.2-3.4); LYMPH % 44.7 % (20.0-51.0); MEAN CELL VOLUME 95 fl (80.0-100.0); MEAN CORPUSCULAR HEMOGLOBIN 31 pg (27.0-31.0); MEAN CORPUSCULAR HGB CONC 33 g/dl (33.0-37.0); MEAN PLATELET VOLUME 10.2 fl (7.4-10.4); MONO # 0.5 (0.1-0.6); MONO % 7.3 % (1.7-9.3); PLATELET COUNT 250 K/mm3 (130-400); REDCELL DISTRIBUTION WIDTH-CV 13.6 % (11.5-14.5)
[2020-09-20 14:01] LABS: ALANINE AMINOTRANSFERASE 19 U/L (4-49); ALBUMIN 3.9 gm/dL (3.5-5.0); ALKALINE PHOSPHATASE 111 U/L (50-136); ANION GAP 8 mmol/L (7-16); AST,SGOT 26 U/L (15-37); BLOOD UREA NITROGEN 13 mg/dL (9-20); CALCIUM 9.1 mg/dL (8.4-10.2); CARBON DIOXIDE 27 mmol/L (22-30); CHLORIDE 106 mmol/L (98-107); CREATININE, serum 0.99 (0.66-1.25); GLUCOSE 163 mg/dL (74-106); POTASSIUM 3.5 mmol/L (3.4-5.0); SODIUM 141 mmol/L (137-145); TOTAL PROTEIN 7.4 gm/dL (6.4-8.2)
[2020-09-20 14:13] LABS: TROPONIN-I < 0.012 ng/mL (0.000-0.035)
[2020-09-20] MEDS ORDERED: DOXYCYCLINE 10100 MG PO ×2 (15:27)
[2020-09-20] MEDS ORDERED: PREDNISONE50 MG PO (15:27)
[2020-09-20] MEDS ORDERED: OMNICEF 300MG300 MG PO (15:54)
[2020-09-20 15:58] VITALS: BP 118/63; PULSE 66
== END 2020-09-20 15:58 | disposition home or self-care (01) ==
LOC: COL.ER 13:08
PROVIDERS: Emergency Medicine
DX: J44.1 Chronic obstructive pulmonary disease with (acute) exacerbation (principal); I50.9 Heart failure, unspecified; I25.10 Atherosclerotic heart disease of native coronary artery without angina pectoris; I25.2 Old myocardial infarction; Z88.8 Allergy status to other drugs, medicaments and biological substances; Z87.891 Personal history of nicotine dependence; Z88.1 Allergy status to other antibiotic agents; Z79.52 Long term (current) use of systemic steroids; Z79.01 Long term (current) use of anticoagulants; Z79.82 Long term (current) use of aspirin
CPT/HCPCS: J1885; J7040; J7512

== ENCOUNTER 2020-11-28 12:27 | Emergency (ER) | payer MEDICARE, OTHER ==
[~2020-11-28] VITALS: Ht 177.8 cm; Wt 82.7 kg
[~2020-11-28 12:27] MED LIST changes: +PREDNISONE50 MG PO
[2020-11-28 12:46] VITALS: TEMP 98.8
[2020-11-28 13:27] LABS: BASO # 0.1 (0.0-0.2); BASO % 0.9 % (0.0-2.0); EOS # 0.2 (0.0-0.7); EOS % 1.4 % (0-4.0); GRAN # 8.3 (1.4-6.5); GRAN % 70.6 % (42.2-75.2); HEMATOCRIT 41.3 % (42.0-52.0); HEMOGLOBIN 13.4 g/dl (13.5-18.0); LYMPH # 1.9 (1.2-3.4); LYMPH % 16.1 % (20.0-51.0); MEAN CELL VOLUME 94 fl (80.0-100.0); MEAN CORPUSCULAR HEMOGLOBIN 31 pg (27.0-31.0); MEAN CORPUSCULAR HGB CONC 32 g/dl (33.0-37.0); MEAN PLATELET VOLUME 9.9 fl (7.4-10.4); MONO # 1.2 (0.1-0.6); MONO % 10.6 % (1.7-9.3); PLATELET COUNT 269 K/mm3 (130-400); RED BLOOD COUNT 4.38 M/mm3 (4.20-5.60); REDCELL DISTRIBUTION WIDTH-CV 13.1 % (11.5-14.5)
[2020-11-28 13:41] LABS: ALANINE AMINOTRANSFERASE 17 U/L (4-49); ALBUMIN 4.4 gm/dL (3.5-5.0); ALKALINE PHOSPHATASE 128 U/L (50-136); ANION GAP 10 mmol/L (7-16); AST,SGOT 26 U/L (15-37); BILIRUBIN,TOTAL 1.8 mg/dL (0.0-1.0); BLOOD UREA NITROGEN 12 mg/dL (9-20); C-REACTIVE PROTEIN 7.2 mg/dL (0.0-0.9); CALCIUM 9.2 mg/dL (8.4-10.2); CARBON DIOXIDE 27 mmol/L (22-30); CHLORIDE 101 mmol/L (98-107); CREATININE, serum 0.99 (0.66-1.25); GLUCOSE 111 mg/dL (74-106); POTASSIUM 4.2 mmol/L (3.4-5.0); SODIUM 138 mmol/L (137-145); TOTAL PROTEIN 7.9 gm/dL (6.4-8.2)
[2020-11-28 13:54] LABS: TROPONIN-I < 0.012 ng/mL (0.000-0.035)
[2020-11-28] MEDS ORDERED: LEVAQUIN 5500 MG/TA1 PO (14:43)
[2020-11-28] MEDS ORDERED: PREDNISONE20 MG PO (14:43)
[2020-11-28 15:00] VITALS: BP 148/74; PULSE 80
== END 2020-11-28 15:13 | disposition home or self-care (01) ==
LOC: COL.ER 12:27
PROVIDERS: Nurse Practitioner Primary Care
DX: J44.1 Chronic obstructive pulmonary disease with (acute) exacerbation (principal); I11.0 Hypertensive heart disease with heart failure; I50.9 Heart failure, unspecified; I25.2 Old myocardial infarction; I25.10 Atherosclerotic heart disease of native coronary artery without angina pectoris; Z95.0 Presence of cardiac pacemaker; Z20.822 Contact with and (suspected) exposure to COVID-19; Z87.891 Personal history of nicotine dependence; Z79.52 Long term (current) use of systemic steroids; Z79.899 Other long term (current) drug therapy; Z79.82 Long term (current) use of aspirin

== ENCOUNTER 2020-12-07 12:36 | Inpatient (IN) | payer MEDICARE, OTHER ==
[~2020-12-07] VITALS: Ht 177.8 cm; Wt 85.5 kg
[2020-12-07 13:26] LABS: HEMATOCRIT 39.7 % (42.0-52.0); HEMOGLOBIN 12.7 g/dl (13.5-18.0); MEAN CELL VOLUME 94 fl (80.0-100.0); MEAN CORPUSCULAR HEMOGLOBIN 30 pg (27.0-31.0); MEAN CORPUSCULAR HGB CONC 32 g/dl (33.0-37.0); MEAN PLATELET VOLUME 9.8 fl (7.4-10.4); PLATELET COUNT 271 K/mm3 (130-400); RED BLOOD COUNT 4.21 M/mm3 (4.20-5.60); REDCELL DISTRIBUTION WIDTH-CV 13.1 % (11.5-14.5)
[2020-12-07 13:31] LABS: ALANINE AMINOTRANSFERASE 26 U/L (4-49); ALBUMIN 3.4 gm/dL (3.5-5.0); ALKALINE PHOSPHATASE 93 U/L (50-136); ANION GAP 7 mmol/L (7-16); AST,SGOT 23 U/L (15-37); BILIRUBIN,TOTAL 1.2 mg/dL (0.0-1.0); BLOOD UREA NITROGEN 19 mg/dL (9-20); CALCIUM 8.2 mg/dL (8.4-10.2); CARBON DIOXIDE 25 mmol/L (22-30); CHLORIDE 101 mmol/L (98-107); CREATININE, serum 0.94 (0.66-1.25); GLUCOSE 214 mg/dL (74-106); POTASSIUM 3.7 mmol/L (3.4-5.0); SODIUM 133 mmol/L (137-145); TOTAL PROTEIN 6.5 gm/dL (6.4-8.2)
[2020-12-07 13:48] LABS: TROPONIN-I < 0.012 ng/mL (0.000-0.035)
[2020-12-07 14:14] LABS: BAND 2 % (0-10); EOSINOPHIL 6 % (0-4); LYMPHOCYTE 9 % (20.0-51.0); NEUTROPHILS 69 % (42.0-75.2)
[2020-12-07 14:15] LABS: HYPOCHROMIA 1+; PLATELET ESTIMATE NORMAL (NORMAL); SCHISTOCYTES 1+
[2020-12-07 14:16] LABS: OVALOCYTES 1+
[2020-12-07 16:46] LABS: COLLECTION METHOD CLEAN CATCH
[2020-12-07 17:26] LABS: MUCOUS Present /lpf; PH 5 (5-8); SQUAMOUS EPITHELIAL None Seen /hpf; URINE APPEARANCE Clear; URINE BACTERIA None Seen /hpf; URINE BILIRUBIN Negative (NEGATIVE); URINE BLOOD Negative (NEGATIVE); URINE COLOR Yellow; URINE GLUCOSE Negative (NEGATIVE); URINE KETONE Negative (NEGATIVE); URINE LEUKOCYTE ESTERASE Negative (NEGATIVE); URINE NITRATE Negative (NEGATIVE); URINE PROTEIN(semi-quant) 1+ (NEGATIVE)
[2020-12-07 18:08] VITALS: BP 120/49; PULSE 88; TEMP 98
[2020-12-07 19:53] VITALS: BP 109/54; PULSE 86; TEMP 98
--- NOTE | 2020-12-07 20:30 | NUR ---
Patient is resting in bed, alert and oriented x 4, VSS, denies nausea or vomiting, no pain. Tele in place, 2L O2 NC. Assessment completed, meds provided. No further needs at this time. Call light within reach.
[2020-12-07 22:43] VITALS: BP 121/53; PULSE 79; TEMP 98
[2020-12-08 03:53] VITALS: BP 125/58; PULSE 84; TEMP 98.8
--- NOTE | 2020-12-08 05:48 | NUR ---
Patient has been stable all night. He continues with 2L O2 NC. Antibiotics running. No further needs at this time. Shift report will be given.
[2020-12-08 08:03] LABS: HEMATOCRIT 37.4 % (42.0-52.0); MEAN CELL VOLUME 94 fl (80.0-100.0); MEAN CORPUSCULAR HEMOGLOBIN 30 pg (27.0-31.0); MEAN CORPUSCULAR HGB CONC 32 g/dl (33.0-37.0); PLATELET COUNT 233 K/mm3 (130-400); REDCELL DISTRIBUTION WIDTH-CV 12.8 % (11.5-14.5)
[2020-12-08 08:14] LABS: ANION GAP 5 mmol/L (7-16); BLOOD UREA NITROGEN 19 mg/dL (9-20); CALCIUM 8.3 mg/dL (8.4-10.2); CARBON DIOXIDE 26 mmol/L (22-30); CHLORIDE 105 mmol/L (98-107); CREATININE, serum 0.73 (0.66-1.25); GLUCOSE 239 mg/dL (74-106); POTASSIUM 4.1 mmol/L (3.4-5.0); SODIUM 136 mmol/L (137-145)
[2020-12-08 08:24] LABS: TROPONIN-I < 0.012 ng/mL (0.000-0.035)
[2020-12-08 09:06] LABS: PATHOLOGY DIFF REVIEW OK
[2020-12-08 09:10] LABS: BAND 15 % (0-10); EOSINOPHIL 1 % (0-4); LYMPHOCYTE 19 % (20.0-51.0); METAMYELOCYTE 2 % (0-0); NEUTROPHILS 63 % (42.0-75.2); PLATELET ESTIMATE NORMAL (NORMAL)
[2020-12-08 09:12] LABS: ANISOCYTOSIS 2+; OVALOCYTES 3+; POIKILOCYTOSIS 3+; SCHISTOCYTES 2+
[2020-12-08 09:23] LABS: BURR CELLS 3+
[2020-12-08 12:32] VITALS: BP 123/57; PULSE 80; TEMP 97.7
--- NOTE | 2020-12-08 14:49 | NUR ---
SW met with patient via phone due to isolation precautions. Patient reports that he lives at home with his Armida ([phone]) in [place]. Patient reports that he is fully independent at home and has a CPAP machine ( [facility]) that he uses, but no other DME. PCP is Dr. Chandler and uses [facility] for a pharmacy. Patient states he does not have a DPOA-HC and does not wish to establish one at this time. Educated patient that without one, his Armida is his legal NOK. Patient's plan is to return home and has no concerns. *Discharge plan: Home*
[2020-12-08 15:48] VITALS: BP 132/77; PULSE 70; TEMP 98.2
[2020-12-08 18:43] LABS: TB GOLD INTERPRETATION Negative (Negative)
[2020-12-08 20:51] VITALS: BP 129/55; PULSE 75; TEMP 97.6
--- NOTE | 2020-12-08 22:16 | NUR ---
PT RESTING IN BED. EVENING MEDICATIONS GIVEN. PT REPORTS NO SOB OR CHEST PAIN. ON ROOM AIR. EXPIRATORY WHEEZES NOTED UPON AUSCULTATION IN BILATERAL BASES. DENIES ANY NEEDS AT THIS TIME. WILL CONTINUE TO MONITOR.
[2020-12-09] VITALS (7 sets, daily range): BP systolic 118–147; BP diastolic 53–68; PULSE 67–85; TEMP 97.1–98.6
--- NOTE | 2020-12-09 06:20 | NUR ---
PT HAD A RESTFUL NIGHT. UNABLE TO START VANCOMYCIN AT THIS TIME DUE TO TROUGH LEVELS NOT DRAWN YET. WILL PASS ALONG TO DAY SHIFT. DENIES ANY NEEDS AT THIS TIME.
[2020-12-09 08:04] LABS: HEMOGLOBIN 11.4 g/dl (13.5-18.0); MEAN CELL VOLUME 94 fl (80.0-100.0); MEAN CORPUSCULAR HEMOGLOBIN 30 pg (27.0-31.0); MEAN CORPUSCULAR HGB CONC 32 g/dl (33.0-37.0); MEAN PLATELET VOLUME 10.4 fl (7.4-10.4); PLATELET COUNT 280 K/mm3 (130-400); RED BLOOD COUNT 3.75 M/mm3 (4.20-5.60); REDCELL DISTRIBUTION WIDTH-CV 12.7 % (11.5-14.5)
[2020-12-09 08:07] LABS: HEMATOCRIT 35.2 % (42.0-52.0)
[2020-12-09 08:10] LABS: CALCIUM 8.4 mg/dL (8.4-10.2); CREATININE, serum 0.77 (0.66-1.25); POTASSIUM 4.3 mmol/L (3.4-5.0)
[2020-12-09 08:40] LABS: BAND 12 % (0-10); LYMPHOCYTE 7 % (20.0-51.0); METAMYELOCYTE 1 % (0-0); NEUTROPHILS 78 % (42.0-75.2)
[2020-12-09 08:41] LABS: BURR CELLS 3+; OVALOCYTES 3+; PLATELET ESTIMATE NORMAL (NORMAL)
[2020-12-09 08:43] LABS: SCHISTOCYTES 2+
[2020-12-09 08:44] LABS: ANISOCYTOSIS 2+; POIKILOCYTOSIS 3+
--- NOTE | 2020-12-09 18:24 | NUR ---
Pt denies any pain, has a dry cough. Pt does complain of dry eyes this evening.
--- NOTE | 2020-12-09 20:04 | NUR ---
PT RESTING IN BED. EVENING MEDICATIONS GIVEN. PT REQUESTING EYE DROPS FOR BURNING ITCHY EYES. LUNGS AUSCULTATED WITH EX. WHEEZES IN ALL TOVAR AND COARSE CRACKLES IN BASES. PT STATES HE HAS NOT BEEN GETTING BREATHING TREATMENTS OFTEN HE DOES AT HOME. DENIES ANY PAIN. WILL CONTINUE TO MONITOR.
[2020-12-10 04:14] VITALS: BP 128/72; PULSE 73; TEMP 97.6
[2020-12-10 07:47] LABS: BASO % 0.1 % (0.0-2.0); EOS % 0.1 % (0-4.0); GRAN # 13.1 (1.4-6.5); GRAN % 84.3 % (42.2-75.2); HEMOGLOBIN 10.8 g/dl (13.5-18.0); LYMPH # 1.5 (1.2-3.4); LYMPH % 9.5 % (20.0-51.0); MEAN CELL VOLUME 95 fl (80.0-100.0); MEAN CORPUSCULAR HEMOGLOBIN 30 pg (27.0-31.0); MEAN CORPUSCULAR HGB CONC 32 g/dl (33.0-37.0); MEAN PLATELET VOLUME 10.4 fl (7.4-10.4); MONO # 0.8 (0.1-0.6); MONO % 5.1 % (1.7-9.3); PLATELET COUNT 293 K/mm3 (130-400); RED BLOOD COUNT 3.59 M/mm3 (4.20-5.60); REDCELL DISTRIBUTION WIDTH-CV 12.7 % (11.5-14.5)
[2020-12-10 07:52] LABS: CALCIUM 8.2 mg/dL (8.4-10.2); CREATININE, serum 0.8 (0.66-1.25); POTASSIUM 4.2 mmol/L (3.4-5.0)
[2020-12-10 08:14] VITALS: BP 125/62; PULSE 95; TEMP 97.5
[2020-12-10 12:08] VITALS: BP 142/73; PULSE 74; TEMP 97.4
[2020-12-10 17:12] VITALS: BP 179/80; PULSE 85
[2020-12-10 20:45] VITALS: BP 156/80; PULSE 98; TEMP 98.4
--- NOTE | 2020-12-10 22:27 | NUR ---
Patient alert and oriented. Patient denies chest pain, N/V, or diarrhea. Patient denies SOB or dyspnea while at rest. Patient reports having some SOB with activities. Patient currently on room air. All scheduled meds given per MAY. Call light in reach. Will continue to monitor..
[2020-12-11] VITALS (9 sets, daily range): BP systolic 126–165; BP diastolic 72–111; PULSE 88–135; TEMP 97.5–98.9
[2020-12-11 06:04] LABS: HEMATOCRIT 39.3 % (42.0-52.0); HEMOGLOBIN 12.5 g/dl (13.5-18.0); MEAN CELL VOLUME 97 fl (80.0-100.0); MEAN CORPUSCULAR HEMOGLOBIN 31 pg (27.0-31.0); MEAN CORPUSCULAR HGB CONC 32 g/dl (33.0-37.0); MEAN PLATELET VOLUME 10.2 fl (7.4-10.4); PLATELET COUNT 317 K/mm3 (130-400); RED BLOOD COUNT 4.05 M/mm3 (4.20-5.60); REDCELL DISTRIBUTION WIDTH-CV 12.8 % (11.5-14.5)
[2020-12-11 06:22] LABS: CALCIUM 8.5 mg/dL (8.4-10.2); CREATININE, serum 0.97 (0.66-1.25); POTASSIUM 3.5 mmol/L (3.4-5.0)
[2020-12-11 06:26] LABS: HYPOCHROMIA 2+; LYMPHOCYTE 9 % (20.0-51.0); MYELOCYTE 1 % (0-0); NEUTROPHILS 86 % (42.0-75.2); PLATELET ESTIMATE NORMAL (NORMAL); POIKILOCYTOSIS 2+
[2020-12-11 06:27] LABS: OVALOCYTES 1+
[2020-12-11 06:28] LABS: BURR CELLS 2+
[2020-12-11 06:29] LABS: SCHISTOCYTES 1+
--- NOTE | 2020-12-11 07:07 | NUR ---
Bedside shift report complete. Pt. sitting up in bed, awake. Pt. alert and reports he ordered breakfast this AM. Pt. reports the plan is to go home today. Needs addressed. Call light and belongings in reach.
--- NOTE | 2020-12-11 07:46 | NUR ---
Pt. sitting up and ate breakfast. Pt.'s HR 135. AM metoprolol to be given. Pt. reports he has dyspnea upon exertion and he also reports his HR has been elevated lately when he gets up to the bathroom. Will discuss with provider today.
--- NOTE | 2020-12-11 11:00 | NUR ---
This RN spoke w/ Dr. Osorio regarding this pt. Dr. Osorio reports she would like the pt. to get a dose of metoprolol, wait one hour, and then discontinue the pt.'s heparin drip. This RN will procceed as ordered, and update the hospitalist team.
--- NOTE | 2020-12-11 19:14 | NUR ---
Report given to STEPHANIE Gordillo. Pt was able to shower and now sitting up at the edge of the bed eating dinner. Pt. denies further needs at this time, call light in reach.
--- NOTE | 2020-12-11 22:34 | NUR ---
PT RESTING IN BED. EVENING MEDICATIONS GIVEN. NEW IV STARTED BY STEPHANIE HARRIS TO RUN ANTIBIOTICS AND CARDIZEM. EX. WHEEZES AUSCULTATED, EXACERBATED BY ACTIVITY. DENIES ANY NEEDS. WILL CONTINUE TO MONITOR.
[2020-12-12 00:30] VITALS: BP 150/85; PULSE 81; TEMP 97.5
[2020-12-12 03:26] VITALS: BP 157/75; PULSE 84; TEMP 97.5
[2020-12-12 07:09] LABS: HEMOGLOBIN 11.7 g/dl (13.5-18.0); MEAN CELL VOLUME 93 fl (80.0-100.0); MEAN CORPUSCULAR HEMOGLOBIN 30 pg (27.0-31.0); MEAN CORPUSCULAR HGB CONC 32 g/dl (33.0-37.0); MEAN PLATELET VOLUME 10.5 fl (7.4-10.4); PLATELET COUNT 321 K/mm3 (130-400); RED BLOOD COUNT 3.95 M/mm3 (4.20-5.60); REDCELL DISTRIBUTION WIDTH-CV 13.2 % (11.5-14.5)
[2020-12-12 07:17] LABS: HEMATOCRIT 36.8 % (42.0-52.0)
[2020-12-12 07:18] LABS: CALCIUM 8.4 mg/dL (8.4-10.2); CREATININE, serum 0.83 (0.66-1.25); MAGNESIUM 2.2 mg/dL (1.6-2.3); POTASSIUM 4.1 mmol/L (3.4-5.0)
--- NOTE | 2020-12-12 07:22 | NUR ---
RECEIVED REPORT FROM STEPHANIE NAGY. PT AWAKE/ALERT IN BED. PLEASANT AND COMPLIANT. PT DENIES PAIN. GAVE PT ICE WATER PER REQUEST. PT HAS NO OTHER NEEDS AT THIS TIME. CALL COLES IN REACH
[2020-12-12 08:25] VITALS: BP 141/67; PULSE 100; TEMP 98.1
[2020-12-12 08:35] LABS: BAND 6 % (0-10); LYMPHOCYTE 9 % (20.0-51.0); NEUTROPHILS 78 % (42.0-75.2)
[2020-12-12 08:37] LABS: BURR CELLS 3+; OVALOCYTES 3+
[2020-12-12 08:38] LABS: POIKILOCYTOSIS 3+
[2020-12-12 08:39] LABS: HYPOCHROMIA 2+; PLATELET ESTIMATE NORMAL (NORMAL)
[2020-12-12] MEDS ORDERED: IMDUR 30MG30 MG/TAB PO (11:07)
[2020-12-12] MEDS ORDERED: LEVAQUIN 5500 MG/TA1 PO (11:08)
[2020-12-12] MEDS ORDERED: DOXYCYCLINE HY100 MG PO (11:08)
[2020-12-12] MEDS ORDERED: TOPROL XL 25MG25 MG PO (11:19)
[2020-12-12 11:38] VITALS: BP 122/60; PULSE 84; TEMP 98.2
--- NOTE | 2020-12-12 13:24 | NUR ---
DISCHARGE INSTRUCTIONS REVIEWED WITH PT. QUESTIONS INVITED AND ANSWERED. BOTH IV'S AND TELE REMOVED. PT IS DRESSED AND WAITING FOR TO ARRIVE. NO NEEDS REQUESTED AT THIS TIME. CALL COLES IN REACH
--- NOTE | 2020-12-12 13:42 | NUR ---
PT WAS ESCORTED OUT BY STEPHANIE TOBIAS. MET WITH CAR
[2020-12-13 09:31] LABS: PATHOLOGY DIFF REVIEW OK
[2020-12-15 14:57] LABS: BLASTOMYCES ID Negative (Negative)
[2020-12-15 15:17] LABS: HISTOPLASMA ID Negative (Negative); HISTOPLASMA MYCELIAL Negative (Negative); HISTOPLASMA YEAST Negative (Negative)
[2020-12-16 15:47] LABS: COCCIDIOIDES AB IGG Negative (Negative); COCCIDIOIDES AB IGM Negative (Negative); COCCIDIOIDES CF Negative (Negative)
== END 2020-12-12 13:40 | disposition home or self-care (01) | DRG 191 ==
LOC: COL.ER 12:36 → MEDICAL 14:50
PROVIDERS: Emergency Medicine; Internal Medicine Infectious Disease; Physician Assistant; ADMIT Student in an Organized Health Care Education/Training Program
DX: J44.1 Chronic obstructive pulmonary disease with (acute) exacerbation (principal); I50.22 Chronic systolic (congestive) heart failure; E87.1 Hypo-osmolality and hyponatremia; I42.9 Cardiomyopathy, unspecified; I47.1 Supraventricular tachycardia; A31.9 Mycobacterial infection, unspecified; B49 Unspecified mycosis; I11.0 Hypertensive heart disease with heart failure; I25.10 Atherosclerotic heart disease of native coronary artery without angina pectoris; I48.91 Unspecified atrial fibrillation; I08.3 Combined rheumatic disorders of mitral, aortic and tricuspid valves; Z20.822 Contact with and (suspected) exposure to COVID-19; K21.9 Gastro-esophageal reflux disease without esophagitis; R91.1 Solitary pulmonary nodule; I77.6 Arteritis, unspecified; D64.9 Anemia, unspecified; R73.9 Hyperglycemia, unspecified; E78.5 Hyperlipidemia, unspecified; Z79.82 Long term (current) use of aspirin; Z79.01 Long term (current) use of anticoagulants; Z79.52 Long term (current) use of systemic steroids; Z95.810 Presence of automatic (implantable) cardiac defibrillator; Z86.711 Personal history of pulmonary embolism; Z86.718 Personal history of other venous thrombosis and embolism; Z88.2 Allergy status to sulfonamides; Z88.1 Allergy status to other antibiotic agents; Z87.891 Personal history of nicotine dependence
CPT/HCPCS: 99223-AI; 99232-AI; 99233-AI; 99239; J0696; J1815; J2543; J2920; J2930; J3370; J7050; J7512; Q9967

== ENCOUNTER 2021-01-24 15:00 | Emergency (ER) | payer MEDICARE, OTHER ==
[~2021-01-24] VITALS: Ht 177.8 cm; Wt 80.9 kg
[~2021-01-24 15:00] MED LIST changes: +DOXYCYCLINE HY100 MG PO; +IMDUR 30MG30 MG/TAB PO
[2021-01-24 15:28] VITALS: TEMP 98.1
[2021-01-24 15:51] LABS: BASO # 0.1 K/mm3 (0.0-0.2); BASO % 1.4 % (0.0-2.0); EOS # 0.2 K/mm3 (0.0-0.7); EOS % 2.8 % (0-4.0); GRAN % 48.5 % (42.2-75.2); HEMATOCRIT 42.3 % (42.0-52.0); HEMOGLOBIN 13.7 g/dl (13.5-18.0); LYMPH # 3.3 K/mm3 (1.2-3.4); LYMPH % 39.1 % (20.0-51.0); MEAN CELL VOLUME 92 fl (80.0-100.0); MEAN CORPUSCULAR HEMOGLOBIN 30 pg (27.0-31.0); MEAN CORPUSCULAR HGB CONC 32 g/dl (33.0-37.0); MEAN PLATELET VOLUME 10.2 fl (7.4-10.4); MONO # 0.7 K/mm3 (0.1-0.6); MONO % 7.8 % (1.7-9.3); PLATELET COUNT 289 K/mm3 (130-400); RED BLOOD COUNT 4.59 M/mm3 (4.20-5.60); REDCELL DISTRIBUTION WIDTH-CV 14.1 % (11.5-14.5)
[2021-01-24] MEDS ORDERED: ENTRESTO 24 MG1 EACH PO (16:00)
[2021-01-24 16:12] LABS: ALANINE AMINOTRANSFERASE 13 U/L (0-55); ALBUMIN 3.8 gm/dL (3.4-4.8); ALKALINE PHOSPHATASE 135 U/L (40-150); ANION GAP 13 mmol/L (7-16); AST,SGOT 23 U/L (5-34); BILIRUBIN,TOTAL 0.9 mg/dL (0.2-1.2); BLOOD UREA NITROGEN 9 mg/dL (8-26); C-REACTIVE PROTEIN 0.55 mg/dL (0.00-0.50); CALCIUM 9.6 mg/dL (8.4-10.2); CARBON DIOXIDE 23 mmol/L (23-31); CHLORIDE 107 mmol/L (98-107); CREATININE, serum 0.86 mg/dL (0.72-1.25); GLUCOSE 108 mg/dL (70-99); LIPASE < 10 U/L (8-78); POTASSIUM 4.4 mmol/L (3.5-4.5); SODIUM 143 mmol/L (136-145)
[2021-01-24 16:35] LABS: COLLECTION METHOD CLEAN CATCH
[2021-01-24 16:43] LABS: MUCOUS Present /lpf; PH 5 (5-8); SQUAMOUS EPITHELIAL None Seen /hpf; URINE APPEARANCE Clear; URINE BACTERIA None Seen /hpf; URINE BILIRUBIN Negative (NEGATIVE); URINE BLOOD Negative (NEGATIVE); URINE COLOR Yellow; URINE GLUCOSE Negative (NEGATIVE); URINE KETONE Negative (NEGATIVE); URINE LEUKOCYTE ESTERASE Negative (NEGATIVE); URINE NITRATE Negative (NEGATIVE); URINE PROTEIN(semi-quant) 1+ (NEGATIVE); URINE RBC 0-2 /hpf; URINE UROBILINOGEN Negative (NEGATIVE)
[2021-01-24] MEDS ORDERED: CEPHALEXIN500 M1 PO (17:21)
[2021-01-24 17:28] VITALS: BP 173/95; PULSE 89
== END 2021-01-24 17:34 | disposition home or self-care (01) ==
LOC: COL.ER 15:00
PROVIDERS: Family Medicine
DX: M79.3 Panniculitis, unspecified (principal); R10.2 Pelvic and perineal pain; J44.9 Chronic obstructive pulmonary disease, unspecified; I25.10 Atherosclerotic heart disease of native coronary artery without angina pectoris; I10 Essential (primary) hypertension; K21.9 Gastro-esophageal reflux disease without esophagitis; E78.5 Hyperlipidemia, unspecified; F17.200 Nicotine dependence, unspecified, uncomplicated; Z79.899 Other long term (current) drug therapy; Z79.01 Long term (current) use of anticoagulants; Z79.51 Long term (current) use of inhaled steroids; Z79.82 Long term (current) use of aspirin
CPT/HCPCS: J7120

== ENCOUNTER 2021-04-20 14:02 | Emergency (ER) | payer MEDICARE, OTHER ==
[~2021-04-20] VITALS: Ht 177.8 cm; Wt 81.8 kg
[~2021-04-20 14:02] MED LIST changes: +CEPHALEXIN500 M1 PO
[2021-04-20 14:09] VITALS: TEMP 97.8
[2021-04-20 14:26] LABS: BASO # 0.1 K/mm3 (0.0-0.2); BASO % 1.9 % (0.0-2.0); EOS # 0.3 K/mm3 (0.0-0.7); EOS % 4.4 % (0.0-4.0); GRAN # 3.1 K/mm3 (1.4-6.5); GRAN % 41.3 % (42.2-75.2); HEMATOCRIT 42.7 % (42.0-52.0); HEMOGLOBIN 13.3 g/dl (13.5-18.0); LYMPH # 3.2 K/mm3 (1.2-3.4); LYMPH % 41.8 % (20.0-51.0); MEAN CELL VOLUME 88 fl (80.0-100.0); MEAN CORPUSCULAR HEMOGLOBIN 27 pg (27-31); MEAN CORPUSCULAR HGB CONC 31 g/dl (33.0-37.0); MEAN PLATELET VOLUME 10.2 fl (7.4-10.4); MONO # 0.8 K/mm3 (0.1-0.6); MONO % 10.3 % (1.7-9.3); PLATELET COUNT 251 K/mm3 (130-400); RED BLOOD COUNT 4.87 M/mm3 (4.20-5.60); REDCELL DISTRIBUTION WIDTH-CV 13.5 % (11.5-14.5)
[2021-04-20 14:43] LABS: ALBUMIN 3.8 gm/dL (3.4-4.8); BILIRUBIN,TOTAL 0.9 mg/dL (0.2-1.2); CALCIUM 8.7 mg/dL (8.4-10.2); CREATININE, serum 0.98 mg/dL (0.72-1.25); POTASSIUM 3.5 mmol/L (3.5-4.5); TOTAL PROTEIN 7.2 gm/dL (6.2-8.1)
[2021-04-20 14:51] LABS: TROPONIN-I 0.01 ng/mL (0.00-0.033)
[2021-04-20 15:47] VITALS: BP 141/77; PULSE 80
[2021-04-20] MEDS ORDERED: PREDNISONE20 MG PO (15:58)
== END 2021-04-20 16:06 | disposition home or self-care (01) ==
LOC: COL.ER 14:02
PROVIDERS: Personal Emergency Response Attendant
DX: J44.1 Chronic obstructive pulmonary disease with (acute) exacerbation (principal); I25.10 Atherosclerotic heart disease of native coronary artery without angina pectoris; I25.2 Old myocardial infarction; Z79.82 Long term (current) use of aspirin; Z79.899 Other long term (current) drug therapy
CPT/HCPCS: J2930

== ENCOUNTER 2021-06-15 09:49 | Day surgery (SDC) | payer MEDICARE, OTHER ==
[~2021-06-15] VITALS: Ht 177.8 cm; Wt 84.0 kg
[2021-06-15 10:57] VITALS: BP 133/67; PULSE 93; TEMP 98.1
[2021-06-15 12:10] VITALS: BP 89/60; PULSE 88; TEMP 97.2
[2021-06-15 12:15] VITALS: BP 87/64; PULSE 88
[2021-06-15 12:30] VITALS: BP 106/68; PULSE 78
--- NOTE | 2021-06-15 13:00 | NUR ---
1210 Pt returns from endo procedure via cart and RN assist to GI [facility]. Pt ambulates from cart to recliner with RN assist. Monitors on and alarms set. Call light within reach. Report received from STEPHANIE Britt. Pt alert and oriented. Pt requests nothing to eat or drink at this time. Pt denies any pain or nausea. 1225 Pt feeling much more like eating now. Pt requests muffin and Sprite. 1235 Pt taking food and drink well. No complications noted. 1257 Discharge instructions given to pt and pt's . All questions answered to their satisfaction. Handed to pt are a thank you card and discharge information. 1300 Pt transferred out of the hospital via wheelchair and María assist, to private vehicle driven by pt's .
== END 2021-06-15 13:00 | disposition home or self-care (01) ==
LOC: SDCO 09:49
DX: K21.9 Gastro-esophageal reflux disease without esophagitis (principal); K22.2 Esophageal obstruction; Z79.899 Other long term (current) drug therapy
CPT/HCPCS: C1726; J2704; J7120

== ENCOUNTER 2021-07-22 18:41 | Emergency (ER) | payer MEDICARE, OTHER ==
[~2021-07-22] VITALS: Ht 177.8 cm; Wt 81.8 kg
[2021-07-22 18:46] VITALS: TEMP 97.6
[2021-07-22] MEDS ORDERED: ATHLETE'S FOOT1% TP (19:01)
[2021-07-22 19:20] VITALS: BP 150/61; PULSE 80
== END 2021-07-22 19:25 | disposition home or self-care (01) ==
LOC: COL.ER 18:41
DX: B37.2 Candidiasis of skin and nail (principal); J44.9 Chronic obstructive pulmonary disease, unspecified; Z99.81 Dependence on supplemental oxygen

== ENCOUNTER 2021-08-19 14:29 | Emergency (ER) | payer MEDICARE, OTHER ==
[~2021-08-19] VITALS: Ht 177.8 cm; Wt 84.1 kg
[~2021-08-19 14:29] MED LIST changes: +ATHLETE'S FOOT1% TP
[2021-08-19 14:49] VITALS: TEMP 97.8
[2021-08-19] MEDS ORDERED: ULTRAM 50MG TAB50 MG PO (16:37)
[2021-08-19 16:58] VITALS: BP 145/118; PULSE 78
== END 2021-08-19 16:59 | disposition home or self-care (01) ==
LOC: COL.ER 14:29
DX: M25.552 Pain in left hip (principal)

== ENCOUNTER 2021-11-14 14:36 | Observation (INO) | payer MEDICARE, OTHER ==
[~2021-11-14] VITALS: Ht 177.8 cm; Wt 82.2 kg
[~2021-11-14 14:36] MED LIST changes: +B-121000 MCG PO; +CIALIS5 MG PO; +RANEXA 500MG T500 MG PO; +ULTRAM 50MG TAB50 MG PO
[2021-11-14 15:05] LABS: BASO # 0.1 K/mm3 (0.0-0.2); BASO % 1.2 % (0.0-2.0); EOS # 0.3 K/mm3 (0.0-0.7); EOS % 4.2 % (0.0-4.0); GRAN # 4.5 K/mm3 (1.4-6.5); GRAN % 59.4 % (42.2-75.2); HEMOGLOBIN 12.9 g/dl (13.5-18.0); LYMPH # 2.1 K/mm3 (1.2-3.4); LYMPH % 27.5 % (20.0-51.0); MEAN CELL VOLUME 86 fl (80.0-100.0); MEAN CORPUSCULAR HEMOGLOBIN 27 pg (27-31); MEAN CORPUSCULAR HGB CONC 32 g/dl (33.0-37.0); MEAN PLATELET VOLUME 9.9 fl (7.4-10.4); MONO # 0.6 K/mm3 (0.1-0.6); MONO % 7.3 % (1.7-9.3); PLATELET COUNT 296 K/mm3 (130-400); RED BLOOD COUNT 4.75 M/mm3 (4.20-5.60); REDCELL DISTRIBUTION WIDTH-CV 15.9 % (11.5-14.5)
[2021-11-14 15:21] LABS: ALBUMIN 3.5 gm/dL (3.4-4.8); BILIRUBIN,TOTAL 1.3 mg/dL (0.2-1.2); CALCIUM 9.2 mg/dL (8.4-10.2); CREATININE, serum 1.09 mg/dL (0.72-1.25); TOTAL PROTEIN 6.9 gm/dL (6.2-8.1)
[2021-11-14 15:27] LABS: TROPONIN-I 0.016 ng/mL (0.00-0.033)
[2021-11-14 17:23] LABS: INR 1.8 (0.8-3.0); PROTHROMBIN TIME 20.7 SECONDS (9.7-12.8)
[2021-11-14 17:25] LABS: PARTIAL THROMBOPLASTIN TIME 37.2 SECONDS (26.0-37.0)
[2021-11-14 18:20] VITALS: BP 159/75; PULSE 75; TEMP 97.7
--- NOTE | 2021-11-14 18:21 | NUR ---
PT ADMITTED TO ROOM 308 VIA WC, VSS, PT A&O X4, PT ABLE TO MAKE NEEDS KNOWN, PT DENIES CP CURRENTLY, FALL PRECAUTIONS IN PLACE, CALL LIGHT IN REACH, PT ORIENTED TO ROOM/FLOOR ROUTINES
[2021-11-14 19:10] LABS: MAGNESIUM 1.8 mg/dL (1.6-2.6)
[2021-11-14 19:17] LABS: TROPONIN-I 0.016 ng/mL (0.00-0.033)
[2021-11-14 20:04] VITALS: BP 147/74; PULSE 95; TEMP 98.2
[2021-11-15] VITALS (9 sets, daily range): BP systolic 112–164; BP diastolic 59–85; PULSE 68–91; TEMP 97.4–98.1
--- NOTE | 2021-11-15 05:27 | NUR ---
PATIENT HAS HAD AN UNEVENTFUL NIGHT AND IS THERAPUTIC WITH HIS HEPRIN DRIP. PATIENT DENIES PAIN, NEEDS OR CONCERNS AT THIS TIME. CALL LIGHT REMAINS WITHIN REACH OF PATIENT. PATIENT ENCOURAGED TO CALL WITH NEEDS OR CONCERNS. PATIENT STATES UNDERSTANDING.
--- NOTE | 2021-11-15 07:56 | NUR ---
VSS, PT A&O X4, PT ABLE TO MAKE NEEDS KNOWN, DENIES CHEST PAIN, DENIES OTHER PAIN, PT RESTING IN BED, FALL PRECAUTIONS IN PLACE, CALL LIGHT IN REACH
--- NOTE | 2021-11-15 09:46 | NUR ---
Engine Boss met with patient to discuss discharge planning. Patient lives in [place] with his , Armida (ph#[phone]) and sees Dr. Chandler for primary care. Patient obtains his medications from either [facility] by mail, [facility], or [facility] in [place] depending on what the medication is. Patient uses a nebulizer and home oxygen from [facility]. Patient is independent with ADLS and plans to return home at time of discharge. Patient does not have DPOA-HC and does not want to complete one while here. Patient states his is in charge of everything. Discharge Plan: Home
--- NOTE | 2021-11-15 12:10 | NUR ---
Initial visit; Patient waiting for someone to get him to take him for a test. Auto Tire Recapper introduced herself and offered God's blessings. Auto Tire Recapper will follow up to learn the results of his testing.
[2021-11-15] MEDS ORDERED: RANEXA 500MG T500 MG PO (12:54)
--- NOTE | 2021-11-15 15:06 | NUR ---
Reviewed education for chronic heart failure. Reviewed [facility] CHF educational booklet, with emphasis on daily weights, obtaining dry weights, monitoring for edema, shortness of breath, decreased endurance, or feeling full when eating less. Reviewed importance of medication compliance with all prescribed medications and when to call your medical provider (CHF Zones). Patient verbalized understanding. Patient s EF is 15-20% which does qualify for Cardiac Rehab. Patient reports already enrolled in Cardiac Rehab at [facility]. Approx 5 minutes spent face to face with patient. approx 5 minutes of chart review.
== END 2021-11-15 15:34 | disposition home or self-care (01) ==
LOC: COL.ER 14:36 → MEDICAL 16:32
PROVIDERS: Personal Emergency Response Attendant; ADMIT Hospitalist
DX: R07.9 Chest pain, unspecified (principal); J96.11 Chronic respiratory failure with hypoxia; J44.9 Chronic obstructive pulmonary disease, unspecified; I25.5 Ischemic cardiomyopathy; I25.10 Atherosclerotic heart disease of native coronary artery without angina pectoris; I11.0 Hypertensive heart disease with heart failure; I50.22 Chronic systolic (congestive) heart failure; Z20.822 Contact with and (suspected) exposure to COVID-19; E78.5 Hyperlipidemia, unspecified; K21.9 Gastro-esophageal reflux disease without esophagitis; Z95.5 Presence of coronary angioplasty implant and graft; Z86.718 Personal history of other venous thrombosis and embolism; Z95.810 Presence of automatic (implantable) cardiac defibrillator; Z86.711 Personal history of pulmonary embolism; Z79.899 Other long term (current) drug therapy; Z79.01 Long term (current) use of anticoagulants; Z79.82 Long term (current) use of aspirin; Z85.828 Personal history of other malignant neoplasm of skin
CPT/HCPCS: A9500; G0378; J1644; J2785

== ENCOUNTER 2022-02-01 13:59 | Outpatient (CLI) | payer MEDICARE, OTHER ==
[~2022-02-01] VITALS: Ht 177.8 cm; Wt 81.0 kg
[~2022-02-01 13:59] MED LIST changes: +CEFTIN500 MG PO
[2022-02-01 14:15] VITALS: BP 93/52; PULSE 107; TEMP 97.4
--- NOTE | 2022-02-01 14:40 | NUR ---
Pt assisted out to meet by wheelchair. Tolerated injection without issue. Free of complaints at time of discharge.
== END 2022-02-01 14:30 | disposition home or self-care (01) ==
LOC: EUO 13:59
DX: J82.83 Eosinophilic asthma (principal); Z79.899 Other long term (current) drug therapy
CPT/HCPCS: J2182

== ENCOUNTER 2022-03-27 14:17 | Emergency (ER) | payer MEDICARE, OTHER ==
[~2022-03-27] VITALS: Ht 177.8 cm; Wt 80.0 kg
[~2022-03-27 14:17] MED LIST changes: +NUCALA100 MG/1 M SQ
[2022-03-27 14:29] VITALS: TEMP 97.8
[2022-03-27 14:54] LABS: BASO # 0.1 K/mm3 (0.0-0.2); BASO % 1.3 % (0.0-2.0); EOS % 0.5 % (0.0-4.0); GRAN # 4.3 K/mm3 (1.4-6.5); GRAN % 56.1 % (42.2-75.2); HEMATOCRIT 38.4 % (42.0-52.0); HEMOGLOBIN 11.7 g/dl (13.5-18.0); LYMPH # 2.7 K/mm3 (1.2-3.4); LYMPH % 34.9 % (20.0-51.0); MEAN CELL VOLUME 85 fl (80.0-100.0); MEAN CORPUSCULAR HEMOGLOBIN 26 pg (27-31); MEAN CORPUSCULAR HGB CONC 31 g/dl (33.0-37.0); MEAN PLATELET VOLUME 10.7 fl (7.4-10.4); MONO # 0.5 K/mm3 (0.1-0.6); MONO % 7.1 % (1.7-9.3); PLATELET COUNT 276 K/mm3 (130-400); REDCELL DISTRIBUTION WIDTH-CV 15.9 % (11.5-14.5)
[2022-03-27 15:08] LABS: ALBUMIN 3.4 gm/dL (3.4-4.8); BILIRUBIN,TOTAL 1.1 mg/dL (0.2-1.2); CREATININE, serum 0.89 mg/dL (0.72-1.25); POTASSIUM 3.5 mmol/L (3.5-4.5); TOTAL PROTEIN 6.8 gm/dL (6.2-8.1)
[2022-03-27 15:15] LABS: TROPONIN-I 0.013 ng/mL (0.00-0.033)
[2022-03-27] MEDS ORDERED: AMOXICILLIN 8751 TAB PO (18:30)
[2022-03-27] MEDS ORDERED: PREDNISONE20 MG PO (18:59)
[2022-03-27 19:54] VITALS: BP 162/71; PULSE 90
[2022-08-02] MEDS ORDERED: NATURAL IRON65 MG PO (22:54)
[2022-08-04] MEDS ORDERED: PREDNISONE10 MG PO ×2 (10:54)
[2022-08-16] MEDS ORDERED: PREDNISONE10 MG PO (08:34)
[2022-08-16] MEDS ORDERED: AMOXICILLIN 8751 TAB PO (08:35)
[2022-08-20] MEDS ORDERED: LANCETS MC ×3 (17:45→18:04)
[2022-08-20] MEDS ORDERED: LEVEMIR100 U/ML SQ ×3 (17:45→18:04)
[2022-08-20] MEDS ORDERED: NOVOLOG 100U100 U/M1 SQ (17:45)
== END 2022-03-27 20:00 | disposition home or self-care (01) ==
LOC: COL.ER 14:17
PROVIDERS: Emergency Medicine
DX: J44.1 Chronic obstructive pulmonary disease with (acute) exacerbation (principal); K52.9 Noninfective gastroenteritis and colitis, unspecified; Z99.81 Dependence on supplemental oxygen; Z88.1 Allergy status to other antibiotic agents; Z88.2 Allergy status to sulfonamides; Z20.822 Contact with and (suspected) exposure to COVID-19
CPT/HCPCS: J0696; J7512; Q9967

== ENCOUNTER 2022-06-25 14:36 | Emergency (ER) | payer MEDICARE, OTHER ==
[~2022-06-25] VITALS: Ht 177.8 cm; Wt 79.5 kg
[~2022-06-25 14:36] MED LIST changes: +AMOXICILLIN 8751 TAB PO
[2022-06-25 15:36] LABS: BASO # 0.1 K/mm3 (0.0-0.2); BASO % 1.1 % (0.0-2.0); EOS % 0.5 % (0.0-4.0); GRAN # 6.1 K/mm3 (1.4-6.5); GRAN % 71.2 % (42.2-75.2); HEMATOCRIT 45.9 % (42.0-52.0); HEMOGLOBIN 14.5 g/dl (13.5-18.0); LYMPH # 1.6 K/mm3 (1.2-3.4); LYMPH % 18.8 % (20.0-51.0); MEAN CELL VOLUME 91 fl (80.0-100.0); MEAN CORPUSCULAR HEMOGLOBIN 29 pg (27-31); MEAN CORPUSCULAR HGB CONC 32 g/dl (33.0-37.0); MEAN PLATELET VOLUME 10.1 fl (7.4-10.4); MONO # 0.7 K/mm3 (0.1-0.6); PLATELET COUNT 227 K/mm3 (130-400); RED BLOOD COUNT 5.06 M/mm3 (4.20-5.60); REDCELL DISTRIBUTION WIDTH-CV 18.5 % (11.5-14.5)
[2022-06-25 15:46] LABS: ALBUMIN 3.8 gm/dL (3.4-4.8); BILIRUBIN,TOTAL 1.1 mg/dL (0.2-1.2); CALCIUM 9.2 mg/dL (8.4-10.2); CREATININE, serum 0.97 mg/dL (0.72-1.25); POTASSIUM 4.1 mmol/L (3.5-4.5); TOTAL PROTEIN 7.2 gm/dL (6.2-8.1)
[2022-06-25 15:52] LABS: TROPONIN-I 0.013 ng/mL (0.00-0.033)
[2022-06-25] MEDS ORDERED: PREDNISONE20 MG PO (17:49)
[2022-06-25] MEDS ORDERED: AMOXICILLIN 8751 TAB PO (17:49)
[2022-06-25 18:14] VITALS: BP 138/76; PULSE 90
== END 2022-06-25 18:14 | disposition home or self-care (01) ==
LOC: COL.ER 14:36
PROVIDERS: Physician Assistant
DX: J44.1 Chronic obstructive pulmonary disease with (acute) exacerbation (principal); Z88.0 Allergy status to penicillin; Z88.2 Allergy status to sulfonamides; Z20.822 Contact with and (suspected) exposure to COVID-19
CPT/HCPCS: J0696; J1100; J7030

== ENCOUNTER 2022-08-02 20:22 | Inpatient (IN) | payer MEDICARE, OTHER ==
[~2022-08-02] VITALS: Ht 172.7 cm; Wt 77.3 kg
[2022-08-02 21:04] LABS: BASO # 0.1 K/mm3 (0.0-0.2); BASO % 0.9 % (0.0-2.0); EOS # 0.2 K/mm3 (0.0-0.7); GRAN % 66.9 % (42.2-75.2); HEMATOCRIT 39.3 % (42.0-52.0); HEMOGLOBIN 12.6 g/dl (13.5-18.0); LYMPH # 1.5 K/mm3 (1.2-3.4); LYMPH % 20.3 % (20.0-51.0); MEAN CELL VOLUME 92 fl (80.0-100.0); MEAN CORPUSCULAR HEMOGLOBIN 30 pg (27-31); MEAN CORPUSCULAR HGB CONC 32 g/dl (33.0-37.0); MEAN PLATELET VOLUME 10.8 fl (7.4-10.4); MONO # 0.7 K/mm3 (0.1-0.6); MONO % 9.4 % (1.7-9.3); PLATELET COUNT 219 K/mm3 (130-400); RED BLOOD COUNT 4.27 M/mm3 (4.20-5.60)
[2022-08-02 21:21] LABS: ALBUMIN 2.8 gm/dL (3.4-4.8); CALCIUM 9.1 mg/dL (8.4-10.2); CREATININE, serum 0.88 mg/dL (0.72-1.25); POTASSIUM 4.2 mmol/L (3.5-4.5); TOTAL PROTEIN 6.3 gm/dL (6.2-8.1)
[2022-08-02 21:27] LABS: TROPONIN-I 0.014 ng/mL (0.00-0.033)
[2022-08-02] MEDS ORDERED: NATURAL IRON65 MG (22:54)
[2022-08-03] VITALS (10 sets, daily range): BP systolic 119–152; BP diastolic 48–69; PULSE 83–99; TEMP 97.4–98.2
[2022-08-03 07:20] LABS: BASO % 0.6 % (0.0-2.0); GRAN # 2.9 K/mm3 (1.4-6.5); GRAN % 80.4 % (42.2-75.2); HEMATOCRIT 41.1 % (42.0-52.0); HEMOGLOBIN 13.1 g/dl (13.5-18.0); LYMPH # 0.6 K/mm3 (1.2-3.4); LYMPH % 16.5 % (20.0-51.0); MEAN CELL VOLUME 95 fl (80.0-100.0); MEAN CORPUSCULAR HEMOGLOBIN 30 pg (27-31); MEAN CORPUSCULAR HGB CONC 32 g/dl (33.0-37.0); MEAN PLATELET VOLUME 11.2 fl (7.4-10.4); MONO # 0.1 K/mm3 (0.1-0.6); MONO % 1.7 % (1.7-9.3); PLATELET COUNT 223 K/mm3 (130-400); RED BLOOD COUNT 4.35 M/mm3 (4.20-5.60); REDCELL DISTRIBUTION WIDTH-CV 15.9 % (11.5-14.5)
[2022-08-03 07:29] LABS: ANION GAP 11 mmol/L (7-16); BLOOD UREA NITROGEN 13 mg/dL (8-26); CALCIUM 9.5 mg/dL (8.4-10.2); CARBON DIOXIDE 21 mmol/L (23-31); CHLORIDE 109 mmol/L (98-107); GLUCOSE 209 mg/dL (70-99); MAGNESIUM 1.9 mg/dL (1.6-2.6); POTASSIUM 3.9 mmol/L (3.5-4.5); SODIUM 141 mmol/L (136-145)
[2022-08-03 07:37] LABS: TROPONIN-I 6 HR POST INITIAL < 0.010 ng/mL (0.00-0.033)
--- NOTE | 2022-08-03 08:12 | NUR ---
Admission assessment performed- see documentation. He is on 2L O2 via nasal cannula. He is alert and oriented and denies any SOB or chest pain at this time. Bed in lowest position and call light within reach.
--- NOTE | 2022-08-03 10:23 | NUR ---
Pt awake and laying in bed. Morning medications administered per eMAR. Shift assessment completed. Pt on 2L per NC. Telemetry remains on - paced. INT in R AC patent, no edema or redness. No request at this time. Call light within reach.
--- NOTE | 2022-08-03 10:34 | NUR ---
Electronics Inspector met with Patient at [facility] in Medical Unit to conduct Care Managment Assessment and discuss discharge planning. Patient lives in [place], [place] with his P: [phone] and is established with PCP Dr. Chandler. Patient is covered by insurance carrier [facility] and [employer]. Patient endorses the use of CPAP prior to admission provided by an agency out of [place], [place]. Patient denies the use of DME and states that he does not have Advanced Directives at this time and declines forms. Discharge Plan: Pending recommendations from treatment team.
--- NOTE | 2022-08-03 13:40 | NUR ---
stopped by but nothing needed at this time.
--- NOTE | 2022-08-03 18:42 | NUR ---
Pt with O2 sat at 96-97% on 2L. Weaned down to RA & maintains O2 sat at 94-95%.
[2022-08-04] VITALS (7 sets, daily range): BP systolic 126–152; BP diastolic 55–64; PULSE 80–89; TEMP 97.4–97.5
--- NOTE | 2022-08-04 00:56 | NUR ---
Shift assessment performed- see documentation. Pt has been titrated to room air and has remained >90% O2. He will wear his 2 L O2 while sleeping as he does at home. He is free of pain or SOB. Bed is in the lowest position and call light within reach.
[2022-08-04 07:00] LABS: BASO % 0.3 % (0.0-2.0); GRAN # 8.8 K/mm3 (1.4-6.5); GRAN % 84.9 % (42.2-75.2); HEMATOCRIT 36.8 % (42.0-52.0); HEMOGLOBIN 11.8 g/dl (13.5-18.0); LYMPH # 1.1 K/mm3 (1.2-3.4); LYMPH % 10.1 % (20.0-51.0); MEAN CELL VOLUME 92 fl (80.0-100.0); MEAN CORPUSCULAR HEMOGLOBIN 30 pg (27-31); MEAN CORPUSCULAR HGB CONC 32 g/dl (33.0-37.0); MONO # 0.4 K/mm3 (0.1-0.6); MONO % 4.2 % (1.7-9.3); PLATELET COUNT 271 K/mm3 (130-400); RED BLOOD COUNT 3.99 M/mm3 (4.20-5.60); REDCELL DISTRIBUTION WIDTH-CV 15.7 % (11.5-14.5)
[2022-08-04 07:17] LABS: CALCIUM 9.1 mg/dL (8.4-10.2); CREATININE, serum 0.85 mg/dL (0.72-1.25)
[2022-08-04] MEDS ORDERED: IPRATROPIUM BROM3 M1 IH (10:48)
[2022-08-04] MEDS ORDERED: AMOXICILLIN 8751 TAB PO (10:48)
[2022-08-04] MEDS ORDERED: PREDNISONE10 MG PO (10:54)
--- NOTE | 2022-08-04 12:57 | NUR ---
INT in R AC discontinued, catheter tip intact.
--- NOTE | 2022-08-04 13:53 | NUR ---
ALL DISCHARGE INFORMATION DISCUSSED WITH PT AND ALL QUESTIONS ANSWERED. PT SHOWERED PRIOR TO DISCHARGE. IV SITE WAS DISCONTINUED CATHETER TIP INTACT. PT HERE TO DRIVE PT HOME. PT ESCORTED OUT BY PCT. PT LEFT MEDICAL UNIT AT 1345, ALL PERSONAL BELONGINGS TAKEN WITH.
== END 2022-08-04 13:45 | disposition home or self-care (01) | DRG 871 ==
LOC: COL.ER 20:22 → MEDICAL 23:08
PROVIDERS: Emergency Medicine; Student in an Organized Health Care Education/Training Program; ADMIT Hospitalist
DX: A41.9 Sepsis, unspecified organism (principal); J18.9 Pneumonia, unspecified organism; J96.01 Acute respiratory failure with hypoxia; J44.1 Chronic obstructive pulmonary disease with (acute) exacerbation; J44.0 Chronic obstructive pulmonary disease with (acute) lower respiratory infection; I50.22 Chronic systolic (congestive) heart failure; E78.5 Hyperlipidemia, unspecified; I11.0 Hypertensive heart disease with heart failure; Z20.822 Contact with and (suspected) exposure to COVID-19; K21.9 Gastro-esophageal reflux disease without esophagitis; I25.10 Atherosclerotic heart disease of native coronary artery without angina pectoris; Z86.711 Personal history of pulmonary embolism; Z86.718 Personal history of other venous thrombosis and embolism; Z99.81 Dependence on supplemental oxygen; Z95.0 Presence of cardiac pacemaker; Z95.5 Presence of coronary angioplasty implant and graft; Z88.1 Allergy status to other antibiotic agents; Z88.2 Allergy status to sulfonamides; Z88.8 Allergy status to other drugs, medicaments and biological substances; Z90.89 Acquired absence of other organs; Z79.01 Long term (current) use of anticoagulants; Z79.82 Long term (current) use of aspirin; Z79.899 Other long term (current) drug therapy; Z23 Encounter for immunization
CPT/HCPCS: J7030; J7512